=== PATIENT | male | born 1940 | race Caucasian/White ===

== ENCOUNTER 2017-03-06 08:00 | Outpatient (CLI) | payer MEDICARE ==
[2017-03-06 13:05] LABS: BASOPHILS % (AUTO) 0.6 %; EOSINOPHILS # (AUTO) 0.3 10^3/uL (0.0-0.7); EOSINOPHILS % (AUTO) 6.1 %; HCT - HEMATOCRIT 39.9 % (42.0-52.0); HGB - HEMOGLOBIN 13.6 g/dL (14.0-18.0); LYMPHOCYTES # (AUTO) 1.9 10^3/uL (1.5-3.5); LYMPHOCYTES % (AUTO) 35.6 %; MEAN CORPUSCULAR HEMOGLOBIN 31.6 pg (27.0-31.0); MEAN CORPUSCULAR VOLUME 92.8 fL (80.0-94.0); MONOCYTES # (AUTO) 0.6 10^3/uL (0.0-1.0); MONOCYTES % (AUTO) 11.3 %; NEUTROPHILS # (AUTO) 2.5 10^3/uL (1.5-6.6); NEUTROPHILS % (AUTO) 46.4 %; NUCLEATED RED BLOOD CELLS AUTO 0.1 /100WBC; RED CELL DISTRIBUTION WIDTH 13.6 % (12.0-15.0); UNCORRECTED WHITE BLOOD COUNT 5.4 x10^3/uL; WHITE BLOOD COUNT 5.4 x10^3/uL (4.8-10.8)
[2017-03-06 13:30] LABS: ALBUMIN/GLOBULIN RATIO 1.4 (1.0-2.2); BILIRUBIN,TOTAL 0.8 mg/dL (0.2-1.0); BUN - BLOOD UREA NITROGEN 13 mg/dL (6-20); CARBON DIOXIDE - CO2 29 mmol/L (21-32); CHLORIDE 104 mmol/L (101-111); CHOL/HDL RATIO 4.3 (<5.0); CHOLESTEROL 143 mg/dL; CREATININE 0.8 mg/dL (0.6-1.2); GFR - MDRD 94 (>89); GLUCOSE 106 mg/dL (70-100); HDL CHOLESTEROL 33 mg/dL; LDL/HDL RATIO 2.4 (<3.6); POTASSIUM 4.1 mmol/L (3.5-5.0); SODIUM 140 mmol/L (135-145); TOTAL PROTEIN 7.1 g/dL (6.7-8.2); TRIGLYCERIDES 160 mg/dL; VLDL CHOLESTEROL 32 mg/dL
== END 2017-03-06 08:01 | disposition home or self-care (01) ==
LOC: LAB.WCP 08:00
PROVIDERS: ATTEND Family Medicine
DX: E78.5 Hyperlipidemia, unspecified (principal); Z12.5 Encounter for screening for malignant neoplasm of prostate
CPT/HCPCS: 36415; 80053; 80061; 85025; G0103; 84153

== ENCOUNTER 2017-10-16 08:00 | Outpatient (CLI) | payer MEDICARE | END 2017-10-16 08:01 | disposition home or self-care (01) | LOC: LAB.WCP 08:00 | PROVIDERS: ATTEND Family Medicine | DX: R19.7 Diarrhea, unspecified (principal) | CPT/HCPCS: 81599; 87329 ==

== ENCOUNTER 2018-03-14 10:30 | Outpatient (CLI) | payer MEDICARE | END 2018-03-14 10:31 | disposition home or self-care (01) | LOC: LAB.WCP 10:30 | PROVIDERS: ATTEND Family Medicine | DX: R19.7 Diarrhea, unspecified (principal) | CPT/HCPCS: 36415; 81599; 83630; 87045; 87046; 87329; 87493 ==

== ENCOUNTER 2018-03-19 17:30 | Outpatient (CLI) | payer MEDICARE | END 2018-03-19 17:31 | LOC: LAB.WCP 17:30 | PROVIDERS: ATTEND Family Medicine | DX: R19.7 Diarrhea, unspecified (principal) | CPT/HCPCS: 87045; 87046 ==

== ENCOUNTER 2018-04-10 18:16 | Emergency (ER) | payer MEDICARE ==
[2018-04-10 18:48] LABS: BASOPHILS % (AUTO) 0.7 %; EOSINOPHILS # (AUTO) 0.1 10^3/uL (0.0-0.7); EOSINOPHILS % (AUTO) 1.2 %; HGB - HEMOGLOBIN 14.4 g/dL (14.0-18.0); LYMPHOCYTES # (AUTO) 1.6 10^3/uL (1.5-3.5); LYMPHOCYTES % (AUTO) 26.1 %; MEAN CORPUSCULAR HEMOGLOBIN 32.2 pg (27.0-31.0); MEAN CORPUSCULAR HGB CONC 35.1 g/dL (32.0-36.0); MEAN CORPUSCULAR VOLUME 91.8 fL (80.0-94.0); MEAN PLATELET VOLUME 6.4 fL (7.4-11.4); MONOCYTES # (AUTO) 0.6 10^3/uL (0.0-1.0); MONOCYTES % (AUTO) 9.5 %; NEUTROPHILS # (AUTO) 3.7 10^3/uL (1.5-6.6); NEUTROPHILS % (AUTO) 62.5 %; PLT - PLATELET COUNT 166 10^3/uL (130-450); RED BLOOD COUNT 4.48 10^6/uL (4.70-6.10); RED CELL DISTRIBUTION WIDTH 13.5 % (12.0-15.0)
--- NOTE | 2018-04-10 19:01 | ED Physician Documentation ---
PD HPI MHE - Stated complaint Stated Complaint: MHE - Chief complaint Chief Complaint: MHE - History obtained from History obtained from: Patient, Family - History of Present Illness Primary symptom: Psychosis (auditory hallucinations) Pain level max: 0 Pain level now: 0 - Additional information Additional information: Patient is a 77-year-old male who presents to the emergency department with increasing hallucinations, auditory, over the past several weeks. He states that they have started telling him to harm people and now they are telling him to harm his . He is afraid that he may act on these hallucinations. States has a history of paranoia dating back to when he was [age] years old. Has happened intermittently throughout his life but never had the command hallucinations like he has now. He does not feel suicidal or homicidal. No new medications or changes to his medications. Does not have a psychiatrist. Sees Dr. Vick for his PCP Review of Systems Ten Systems: 10 systems reviewed and negative Constitutional: denies: Fever, Chills Throat: denies: Sore throat Cardiac: denies: Chest pain / pressure Respiratory: denies: Cough GI: denies: Abdominal Pain, Nausea, Vomiting, Diarrhea Skin: denies: Rash Musculoskeletal: denies: Neck pain, Back pain Neurologic: denies: Headache PD PAST MEDICAL HISTORY - Past Medical History Past Medical History: Yes Endocrine/Autoimmune: Other GI: GERD, Hiatal hernia Other Past Medical History: hypoglycemia - Past Surgical History Past Surgical History: Yes General: Hiatal hernia repair, Other - Present Medications Home Medications: Ambulatory Orders Medication Instructions Recorded Confirmed Aspirin [Aspir 81] 81 mg PO DAILY 06/11/15 01/06/16 Multivitamin [Multi-Vitamin Daily] 1 each PO DAILY 06/11/15 01/06/16 Omeprazole [Prilosec] 20 mg PO DAILY 06/11/15 01/06/16 Cyclobenzaprine [Flexeril] 10 mg PO TID PRN #20 tablet 01/06/16 HYDROcod/ACETAM 5/325 [[place] 5/325] 1 - 2 ea PO Q6H PRN #15 tablet 01/06/16 - Allergies Allergies/Adverse Reactions: Allergies Allergy/AdvReac Type Severity Reaction Status Date / Time Penicillins Allergy Unknown Verified 04/10/18 18:32 - Social History Does the pt smoke?: No Smoking Status: Never smoker Does the pt drink ETOH?: No Does the pt have substance abuse?: No - Immunizations Immunizations are current?: Yes PD ED PE NORMAL - Vitals Vital signs reviewed: Yes - General General: Alert and oriented X 3, No acute distress, Well developed/nourished - HEENT HEENT: PERRL, Ears normal, Moist mucous membranes - Neck Neck: Supple, no meningeal sign - Cardiac Cardiac: RRR, Strong equal pulses - Respiratory Respiratory: No respiratory distress, Clear bilaterally - Abdomen Abdomen: Soft, Non tender, Non distended - Derm Derm: Warm and dry - Extremities Extremities: No edema, No calf tenderness / cord - Neuro Neuro: Alert and oriented X 3, 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, No motor deficit, No sensory deficit Eye Opening: Spontaneous Motor: Obeys Commands Verbal: Oriented GCS Score: 15 - Psych Psych: Normal mood, Normal affect Results - Vitals Vitals: Vital Signs - 24 hr 04/10/18 18:21 Temperature 37.1 C Heart Rate 85 Respiratory 16 Rate Blood Pressure 174/92 H O2 Saturation 95 Oxygen O2 Source Room air - Labs Labs: Laboratory Tests 04/10/18 04/10/18 04/10/18 18:40 18:40 18:40 WBC 6.0 RBC 4.48 L Hgb 14.4 Hct 41.1 L MCV 91.8 MCH 32.2 H MCHC 35.1 RDW 13.5 Plt Count 166 MPV 6.4 L Neut # (Auto) 3.7 Lymph # (Auto) 1.6 [place] # (Auto) 0.6 Eos # (Auto) 0.1 Baso # (Auto) 0.0 Absolute Nucleated RBC 0.00 Nucleated RBC % 0.0 Sodium 139 Potassium 4.0 Chloride 105 Carbon Dioxide 25 Anion Gap 9.0 BUN 15 Creatinine 1.0 Estimated GFR (MDRD) 72 L Glucose 118 H Calcium 9.4 Total Bilirubin 0.8 AST 23 ALT 27 Alkaline Phosphatase 65 Total Protein 8.0 Albumin 4.6 Globulin 3.4 Albumin/Globulin Ratio 1.4 Lipase 21 L TSH 1.75 Free T4 0.74 Urine Color Urine Clarity Urine pH Ur Specific [place] Urine Protein Urine Glucose (UA) Urine Ketones Urine Occult Blood Urine Nitrite Urine Bilirubin Urine Urobilinogen Ur Leukocyte Esterase Ur Microscopic Review Urine Culture Comments Salicylates < 6.0 Urine Opiates Screen Ur Oxycodone Screen Urine Methadone Screen Ur Propoxyphene Screen Acetaminophen < 10 L Ur Barbiturates Screen Ur Tricyclics Screen Ur Phencyclidine Scrn Ur Amphetamine Screen U Methamphetamines Scrn U Benzodiazepines Scrn Urine Cocaine Screen U Cannabinoids Screen Ethyl Alcohol < 5.0 04/10/18 19:25 WBC RBC Hgb Hct MCV MCH MCHC RDW Plt Count MPV Neut # (Auto) Lymph # (Auto) [place] # (Auto) Eos # (Auto) Baso # (Auto) Absolute Nucleated RBC Nucleated RBC % Sodium Potassium Chloride Carbon Dioxide Anion Gap BUN Creatinine Estimated GFR (MDRD) Glucose Calcium Total Bilirubin AST ALT Alkaline Phosphatase Total Protein Albumin Globulin Albumin/Globulin Ratio Lipase TSH Free T4 Urine Color YELLOW Urine Clarity CLEAR Urine pH 6.5 Ur Specific [place] 1.015 Urine Protein NEGATIVE Urine Glucose (UA) NEGATIVE Urine Ketones NEGATIVE Urine Occult Blood NEGATIVE Urine Nitrite NEGATIVE Urine Bilirubin NEGATIVE Urine Urobilinogen 0.2 (NORMAL) Ur Leukocyte Esterase NEGATIVE Ur Microscopic Review NOT INDICATED Urine Culture Comments NOT INDICATED Salicylates Urine Opiates Screen NEGATIVE Ur Oxycodone Screen NEGATIVE Urine Methadone Screen NEGATIVE Ur Propoxyphene Screen NEGATIVE Acetaminophen Ur Barbiturates Screen NEGATIVE Ur Tricyclics Screen NEGATIVE Ur Phencyclidine Scrn NEGATIVE Ur Amphetamine Screen NEGATIVE U Methamphetamines Scrn NEGATIVE U Benzodiazepines Scrn NEGATIVE Urine Cocaine Screen NEGATIVE U Cannabinoids Screen NEGATIVE Ethyl Alcohol - Rads (name of study) head CT Radiology: Prelim report reviewed, EMP read contemporaneously, See rad report ( no acute intracranial abnormality.) PD MEDICAL DECISION MAKING - ED course Complexity details: reviewed results, re-evaluated patient, considered differential, d/w patient, d/w family, d/w trousseau consultant ED course: Patient is a 77-year-old male who presents to the emergency department with auditory hallucinations and emotional lability. Unclear if this is a psychiatric disease versus possible early dementia. I consulted tele- psychiatry who evaluated the patient and recommend starting him on Seroquel 50 mg by mouth nightly. They also recommended voluntary hospitalization. Recommend a neurology consult/workup for possible dementia. This will likely have to be performed as an outpatient. Patient will be held overnight in the emergency department for social work in the morning to pursue voluntary hospitalization. Signed out to the [facility] emergency department physician This document was made in part using voice recognition software. While efforts are made to proofread this document, sound alike and grammatical errors may occur. - Sepsis Event Vital Signs: Vital Signs - 24 hr 04/10/18 18:21 Temperature 37.1 C Heart Rate 85 Respiratory 16 Rate Blood Pressure 174/92 H O2 Saturation 95 Oxygen O2 Source Room air Departure - Departure Clinical Impression: Emotional lability, Auditory hallucination Condition: Stable
[2018-04-10 19:09] LABS: ALBUMIN 4.6 g/dL (3.2-5.5); ALBUMIN/GLOBULIN RATIO 1.4 (1.0-2.2); ALKALINE PHOSPHATASE 65 IU/L (42-121); ALT ALANINE AMINOTRANSFERASE 27 IU/L (10-60); AST ASPARTATE AMINOTRANSFERASE 23 IU/L (10-42); BILIRUBIN,TOTAL 0.8 mg/dL (0.2-1.0); BUN - BLOOD UREA NITROGEN 15 mg/dL (6-20); CALCIUM 9.4 mg/dL (8.5-10.3); CARBON DIOXIDE - CO2 25 mmol/L (21-32); CHLORIDE 105 mmol/L (101-111); GFR - MDRD 72 (>89); GLUCOSE 118 mg/dL (70-100); LIPASE 21 U/L (22-51); SALICYLATE < 6.0 mg/dL; SODIUM 139 mmol/L (135-145)
[2018-04-10 19:27] LABS: MUDS CUTOFF CONCENTRATIONS CUTOFF CONC BELOW:
[2018-04-10 19:30] LABS: ACETAMINOPHEN < 10 ug/mL (10-30)
[2018-04-10 19:39] LABS: BILIRUBIN,URINE NEGATIVE (NEGATIVE); GLUCOSE, URINE (UA) NEGATIVE (NEGATIVE); KETONES,URINE (UA) NEGATIVE (NEGATIVE); LEUKOCYTE ESTERASE, URINE NEGATIVE (NEGATIVE); NITRITE,URINE NEGATIVE (NEGATIVE); OCCULT BLOOD,URINE NEGATIVE (NEGATIVE); PH,URINE 6.5 PH (5.0-7.5); PROTEIN,URINE NEGATIVE (NEGATIVE); UROBILINOGEN,URINE 0.2 (NORMAL) E.U./dL (NORMAL)
[2018-04-10 19:40] LABS: CLARITY,URINE CLEAR (CLEAR)
--- NOTE | 2018-04-10 19:44 | CT Report ---
Reason: ALOC, hallucinations Procedure Date: 04/10/2018 Accession Number: [id number] / [id number] Procedure: CT - Head W/O CPT Code: FULL RESULT: EXAM: CT HEAD EXAM DATE: 04/10/2018 07:21 PM. CLINICAL HISTORY: Auditory hallucination. COMPARISON: None. TECHNIQUE: Multiaxial CT images were obtained from the foramen magnum to the vertex. Reformats: Sagittal and coronal. IV contrast: None. In accordance with CT protocol optimization, one or more of the following dose reduction techniques were utilized for this exam: automated exposure control, adjustment of mA and/or KV based on patient size, or use of iterative reconstructive technique. FINDINGS: Parenchyma: No intraparenchymal hemorrhage. No evidence of mass, midline shift, or CT findings of acute infarction. Capps-white differentiation is distinct. Diffuse chronic microangiopathic white matter changes are evident. Extraaxial Spaces: Normal for age. No subdural or epidural collections identified. Ventricles: The ventricles and cortical sulci are enlarged, consistent with age-related tissue loss. Sinuses and orbits: Imaged paranasal sinuses, orbits, and mastoids show no significant abnormality. Bones: No evidence of fracture or calvarial defect. Other: None. IMPRESSION: Generalized age-related cortical atrophic changes without evidence of acute intracranial abnormality. RADIA
[2018-04-10 19:53] LABS: THYROID STIMULATING HORMONE 1.75 uIU/mL (0.34-5.60)
[2018-04-10 19:57] LABS: FREE T4 (FREE THYROXINE) 0.74 ng/dL (0.58-1.64)
[2018-04-10 19:59] LABS: AMPHETAMINE SCREEN,URINE NEGATIVE (NEGATIVE); BENZODIAZEPINES SCREEN, URINE NEGATIVE (NEGATIVE); COCAINE SCREEN URINE NEGATIVE (NEGATIVE); METHADONE SCREEN, URINE NEGATIVE (NEGATIVE); METHAMPHETAMINES SCREEN, URINE NEGATIVE (NEGATIVE); OPIATE SCREEN, URINE NEGATIVE (NEGATIVE); OXYCODONE SCREEN, URINE NEGATIVE (NEGATIVE); PROPOXYPHENE SCREEN, URINE NEGATIVE (NEGATIVE); TRICYCLIC ANTIDEPRESSANT,URINE NEGATIVE (NEGATIVE)
[2018-04-11] MEDS ORDERED: QUEtiapine 25 MG TABLET PO STA ×2 (00:13→22:21)
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
--- NOTE | 2018-04-11 07:22 | ED Physician Documentation ---
History of Present Illness - Stated complaint Stated Complaint: MHE - Chief complaint Chief Complaint: MHE PD PAST MEDICAL HISTORY - Past Medical History Past Medical History: Yes Endocrine/Autoimmune: Other GI: GERD, Hiatal hernia Other Past Medical History: hypoglycemia - Past Surgical History Past Surgical History: Yes General: Hiatal hernia repair, Other - Present Medications Home Medications: Ambulatory Orders Medication Instructions Recorded Confirmed Aspirin [Aspir 81] 81 mg PO DAILY 06/11/15 01/06/16 Multivitamin [Multi-Vitamin Daily] 1 each PO DAILY 06/11/15 01/06/16 Omeprazole [Prilosec] 20 mg PO DAILY 06/11/15 01/06/16 Cyclobenzaprine [Flexeril] 10 mg PO TID PRN #20 tablet 01/06/16 HYDROcod/ACETAM 5/325 [[place] 5/325] 1 - 2 ea PO Q6H PRN #15 tablet 01/06/16 - Allergies Allergies/Adverse Reactions: Allergies Allergy/AdvReac Type Severity Reaction Status Date / Time Penicillins Allergy Unknown Verified 04/10/18 18:32 - Social History Does the pt smoke?: No Smoking Status: Never smoker Does the pt drink ETOH?: No Does the pt have substance abuse?: No - Immunizations Immunizations are current?: Yes Results - Vitals Vitals: Vital Signs - 24 hr 04/11/18 08:44 Temperature 36.5 C Heart Rate 66 Respiratory 14 Rate Blood Pressure 144/92 H O2 Saturation 93 Oxygen O2 Source Room air - EKG (time done) 1138 Rate: Rate (enter#) (72) Rhythm: NSR [place]: Normal Intervals: Normal AK QRS: Normal Ischemia: Normal ST segments - Labs Labs: Laboratory Tests 04/10/18 04/10/18 04/10/18 18:40 18:40 18:40 WBC 6.0 RBC 4.48 L Hgb 14.4 Hct 41.1 L MCV 91.8 MCH 32.2 H MCHC 35.1 RDW 13.5 Plt Count 166 MPV 6.4 L Neut # (Auto) 3.7 Lymph # (Auto) 1.6 [place] # (Auto) 0.6 Eos # (Auto) 0.1 Baso # (Auto) 0.0 Absolute Nucleated RBC 0.00 Nucleated RBC % 0.0 Sodium 139 Potassium 4.0 Chloride 105 Carbon Dioxide 25 Anion Gap 9.0 BUN 15 Creatinine 1.0 Estimated GFR (MDRD) 72 L Glucose 118 H Calcium 9.4 Total Bilirubin 0.8 AST 23 ALT 27 Alkaline Phosphatase 65 Total Protein 8.0 Albumin 4.6 Globulin 3.4 Albumin/Globulin Ratio 1.4 Lipase 21 L TSH 1.75 Free T4 0.74 Urine Color Urine Clarity Urine pH Ur Specific [place] Urine Protein Urine Glucose (UA) Urine Ketones Urine Occult Blood Urine Nitrite Urine Bilirubin Urine Urobilinogen Ur Leukocyte Esterase Ur Microscopic Review Urine Culture Comments Salicylates < 6.0 Urine Opiates Screen Ur Oxycodone Screen Urine Methadone Screen Ur Propoxyphene Screen Acetaminophen < 10 L Ur Barbiturates Screen Ur Tricyclics Screen Ur Phencyclidine Scrn Ur Amphetamine Screen U Methamphetamines Scrn U Benzodiazepines Scrn Urine Cocaine Screen U Cannabinoids Screen Ethyl Alcohol < 5.0 04/10/18 19:25 WBC RBC Hgb Hct MCV MCH MCHC RDW Plt Count MPV Neut # (Auto) Lymph # (Auto) [place] # (Auto) Eos # (Auto) Baso # (Auto) Absolute Nucleated RBC Nucleated RBC % Sodium Potassium Chloride Carbon Dioxide Anion Gap BUN Creatinine Estimated GFR (MDRD) Glucose Calcium Total Bilirubin AST ALT Alkaline Phosphatase Total Protein Albumin Globulin Albumin/Globulin Ratio Lipase TSH Free T4 Urine Color YELLOW Urine Clarity CLEAR Urine pH 6.5 Ur Specific [place] 1.015 Urine Protein NEGATIVE Urine Glucose (UA) NEGATIVE Urine Ketones NEGATIVE Urine Occult Blood NEGATIVE Urine Nitrite NEGATIVE Urine Bilirubin NEGATIVE Urine Urobilinogen 0.2 (NORMAL) Ur Leukocyte Esterase NEGATIVE Ur Microscopic Review NOT INDICATED Urine Culture Comments NOT INDICATED Salicylates Urine Opiates Screen NEGATIVE Ur Oxycodone Screen NEGATIVE Urine Methadone Screen NEGATIVE Ur Propoxyphene Screen NEGATIVE Acetaminophen Ur Barbiturates Screen NEGATIVE Ur Tricyclics Screen NEGATIVE Ur Phencyclidine Scrn NEGATIVE Ur Amphetamine Screen NEGATIVE U Methamphetamines Scrn NEGATIVE U Benzodiazepines Scrn NEGATIVE Urine Cocaine Screen NEGATIVE U Cannabinoids Screen NEGATIVE Ethyl Alcohol PD MEDICAL DECISION MAKING - ED course ED course: assumed care 7 AM 04/11/18 77 male to ED with new onset command auditory hallucinations instructing him to harm others seen by Dr Pantoja yesterday and medically cleared including [facility] then had telepsych eval which recommended start seroquel, neuro eval for dementia (not available service at [facility]) and placement in [facility] recommended meds were started went to see pt [id number] he is sleeping RRR CTAB at bedside and updated on plan SW consult to assist geripsych placement pt accepted by Mathew Iraheta completed - Sepsis Event Vital Signs: Vital Signs - 24 hr 04/11/18 08:44 Temperature 36.5 C Heart Rate 66 Respiratory 14 Rate Blood Pressure 144/92 H O2 Saturation 93 Oxygen O2 Source Room air Departure - Departure Disposition: 65 Psych Hosp/Unit DC/Xfer Clinical Impression: Emotional lability, Auditory hallucination Condition: Stable
--- NOTE | 2018-04-12 08:03 | ED Physician Documentation ---
ED Addendum - Addendum Addendum: 04/12/18 08:03 resumed care 7 Am 04/12/18 pt has been placed and transport will arrive 915 I went to see him sleeping comfortably at this time updated
[2018-04-12 09:32] VITALS: BP 137/89
== END 2018-04-12 09:30 ==
LOC: ED 18:16
DX: R45.86 Emotional lability (principal); R44.0 Auditory hallucinations; I10 Essential (primary) hypertension; Z81.8 Family history of other mental and behavioral disorders
CPT/HCPCS: 36415; 70450; 80053; 81003; 83690; 84439; 84443; 85025; 93005; 99283; 99284; A9270; G0426; Q3014; 80306; 80307; 80320; 80329; 81001; 87086

== ENCOUNTER 2018-06-25 21:36 | Emergency (ER) | payer MEDICARE ==
--- NOTE | 2018-06-25 22:01 | ED Physician Documentation ---
PD HPI MHE - Stated complaint Stated Complaint: MHE - Chief complaint Chief Complaint: MHE - History obtained from History obtained from: Patient, Family - History of Present Illness Primary symptom: Suicidal ideation, Homicidal ideation Timing - onset: How many days ago (3) Pain level max: 0 Pain level now: 0 Recently seen: Emergency Dept - Additional information Additional information: was evaluated in this ED in March for similar symptoms; at that time, patient was transferred ([facility], inpatient stay for 9 days), and symptoms had resolved until 3 days ago. No recent missed medications or new recent medications. For past 3 days, he has had increasingly frequent thoughts of self harm and harming his . He feels the thoughts of harming his are stronger than they had been in the past. Tonight, he felt like he was losing control over these tho ughts and was worried he might act on them. Review of Systems Constitutional: reports: Reviewed and negative Cardiac: reports: Reviewed and negative Respiratory: reports: Reviewed and negative GI: reports: Reviewed and negative : denies: Dysuria, Frequency Neurologic: denies: Generalized weakness, Focal weakness, Numbness, Confused, Headache Psychiatric: reports: Suicidal, Homicidal, Anxiety. denies: Depressed, Hallucinations, Delusions PD PAST MEDICAL HISTORY - Past Medical History Past Medical History: No Cardiovascular: Hypertension Respiratory: None Neuro: None Endocrine/Autoimmune: Other GI: GERD, Hiatal hernia : None HEENT: None Psych: Depression, Anxiety Musculoskeletal: None Derm: None - Past Surgical History Past Surgical History: Yes General: Hiatal hernia repair, Other - Present Medications Home Medications: Ambulatory Orders Medication Instructions Recorded Confirmed Aspirin [Aspir 81] 81 mg PO DAILY 06/11/15 01/06/16 Multivitamin [Multi-Vitamin Daily] 1 each PO DAILY 06/11/15 01/06/16 Omeprazole [Prilosec] 20 mg PO DAILY 06/11/15 01/06/16 Labetalol [Trandate] 100 mg PO BID 06/25/18 06/25/18 Lamotrigine [Lamotrigine Odt] 25 mg PO BID 06/25/18 06/25/18 QUEtiapine [SEROquel] 50 mg PO DAILY PM 06/25/18 06/25/18 hydrOXYzine pamoate [Hydroxyzine 25 mg PO Q8H PRN 06/25/18 06/25/18 Pamoate] LORazepam [Lorazepam] 0.5 mg PO TID PRN #14 tablet 06/26/18 Quetiapine Fumarate [Seroquel] 50 mg PO BID #60 tablet 06/26/18 - Allergies Allergies/Adverse Reactions: Allergies Allergy/AdvReac Type Severity Reaction Status Date / Time Penicillins Allergy Unknown Verified 06/25/18 21:43 - Social History Does the pt smoke?: No Smoking Status: Never smoker Does the pt drink ETOH?: No Does the pt have substance abuse?: No - Immunizations Immunizations are current?: Yes - POLST Patient has POLST: No PD ED PE NORMAL - Vitals Vital signs reviewed: Yes - General General: Alert and oriented X 3, No acute distress, Well developed/nourished - HEENT HEENT: PERRL, EOMI, Moist mucous membranes - Neck Neck: Supple, no meningeal sign - Cardiac Cardiac: RRR, No murmur - Respiratory Respiratory: No respiratory distress, Clear bilaterally - Abdomen Abdomen: Soft, Non tender - Derm Derm: Normal color, Warm and dry - Neuro Neuro: Alert and oriented X 3, No motor deficit, No sensory deficit, Normal speech Eye Opening: Spontaneous Motor: Obeys Commands Verbal: Oriented GCS Score: 15 - Psych Psych: Normal mood, Normal affect Results - Vitals Vitals: Vital Signs - 24 hr 06/25/18 06/26/18 21:38 05:12 Temperature 36.3 C L 36.3 C L Heart Rate 77 69 Respiratory 16 Rate Blood Pressure 161/83 H 166/98 H O2 Saturation 97 98 Oxygen O2 Source Room air - Labs Labs: Laboratory Tests 06/25/18 06/25/18 06/25/18 22:10 22:10 22:10 WBC 5.6 RBC 4.13 L Hgb 13.3 L Hct 37.9 L MCV 91.7 MCH 32.3 H MCHC 35.2 RDW 13.3 Plt Count 142 MPV 6.6 L Neut # (Auto) 3.5 Lymph # (Auto) 1.3 L [place] # (Auto) 0.6 Eos # (Auto) 0.2 Baso # (Auto) 0.0 Absolute Nucleated RBC 0.00 Nucleated RBC % 0.0 Sodium 139 Potassium 3.7 Chloride 108 Carbon Dioxide 25 Anion Gap 6.0 BUN 17 Creatinine 1.0 Estimated GFR (MDRD) 72 L Glucose 135 H Calcium 8.9 Total Bilirubin 0.8 AST 22 ALT 22 Alkaline Phosphatase 75 Total Protein 7.2 Albumin 4.6 Globulin 2.6 Albumin/Globulin Ratio 1.8 Lipase 16 L Vitamin B12 TSH 1.37 Urine Color Urine Clarity Urine pH Ur Specific [place] Urine Protein Urine Glucose (UA) Urine Ketones Urine Occult Blood Urine Nitrite Urine Bilirubin Urine Urobilinogen Ur Leukocyte Esterase Ur Microscopic Review Urine Culture Comments Salicylates < 6.0 Urine Opiates Screen Ur Oxycodone Screen Urine Methadone Screen Ur Propoxyphene Screen Acetaminophen < 10 L Ur Barbiturates Screen Ur Tricyclics Screen Ur Phencyclidine Scrn Ur Amphetamine Screen U Methamphetamines Scrn U Benzodiazepines Scrn Urine Cocaine Screen U Cannabinoids Screen Ethyl Alcohol < 5.0 06/25/18 06/25/18 22:10 22:13 WBC RBC Hgb Hct MCV MCH MCHC RDW Plt Count MPV Neut # (Auto) Lymph # (Auto) [place] # (Auto) Eos # (Auto) Baso # (Auto) Absolute Nucleated RBC Nucleated RBC % Sodium Potassium Chloride Carbon Dioxide Anion Gap BUN Creatinine Estimated GFR (MDRD) Glucose Calcium Total Bilirubin AST ALT Alkaline Phosphatase Total Protein Albumin Globulin Albumin/Globulin Ratio Lipase Vitamin B12 426 TSH Urine Color YELLOW Urine Clarity CLEAR Urine pH 5.5 Ur Specific [place] >=1.030 H Urine Protein NEGATIVE Urine Glucose (UA) NEGATIVE Urine Ketones NEGATIVE Urine Occult Blood NEGATIVE Urine Nitrite NEGATIVE Urine Bilirubin NEGATIVE Urine Urobilinogen 0.2 (NORMAL) Ur Leukocyte Esterase NEGATIVE Ur Microscopic Review NOT INDICATED Urine Culture Comments NOT INDICATED Salicylates Urine Opiates Screen NEGATIVE Ur Oxycodone Screen NEGATIVE Urine Methadone Screen NEGATIVE Ur Propoxyphene Screen NEGATIVE Acetaminophen Ur Barbiturates Screen NEGATIVE Ur Tricyclics Screen POSITIVE H Ur Phencyclidine Scrn NEGATIVE Ur Amphetamine Screen NEGATIVE U Methamphetamines Scrn NEGATIVE U Benzodiazepines Scrn NEGATIVE Urine Cocaine Screen NEGATIVE U Cannabinoids Screen NEGATIVE Ethyl Alcohol PD MEDICAL DECISION MAKING - ED course Complexity details: reviewed old records, reviewed results, re-evaluated patient, considered differential, d/w patient, d/w family ED course: Telepsych consult obtained, and the recommendation is inpatient stabilization. Also increase seroquel to 50mg BID (from 50mg QD). Also lorazepam 0.5mg PO now. Continue other meds. ED RN was able to arrange for a bed at [facility]. In working on finalizing this arrangement, staff at [facility] requested an EKG. When I explained this to patient, he tells me he no longer wants to be admitted anywhere. His is present at bedside as he tells me that he and his have come up with a plan that they both feel comfortable with: she will take him home, he will pack and then drive down to a hotel in [place] at or near the airport while she will stay at the home on [address]. He plans on then making arrangements to fly to [place] where he says he has friends and family, including a few children, that have always been very supportive and readily available for him. He says he has seen a therapist there, as well, and plans to make an appointment to see him. He says if this therapist is no longer in practice, he will ask for a recommendation. He says he is confident he will not have any acute issues, but says he knows he can always go to nearest ED or call 911 if he feels he needs to be reevaluated on an immediate basis. He says he hopes that eventually medication changes will lead to him being comfortable with returning to his , but says he realizes it will likely be weeks or longer before this can be considered. Patient says that the point of this plan is to keep his at a safe distance so that he cannot harm her. I asked him about the SI, and he says that the only reason he had those thoughts was he figured if he killed himself, then he would no longer be a threat to his . He maintains that he has not had any urge to act on either the HI or SI thoughts, but was worried about the possibility that he might develop the urge to do so (for now, he has only had thoughts of such acts happening, but not an urge or desire to act on them; he presented tonight because he was repulsed by the thought of harm coming to his . If he puts distance between himself and his , he says he would not have any thoughts of self-harm). The is present during this conversation and says she is comfortable with this plan, albeit sad that he will be away from her. They both tell me that they are in love with each other. Patient presented to ED voluntarily, and gives a plan that is a reasonably acceptable alternative to inpatient stay/hospitalization. I do not have enough information at this time to hold patient in ED or transfer him against his will. Departure - Departure Disposition: 01 Home, Self Care Clinical Impression: Emotional lability Condition: Good Instructions: ED Depression Follow-Up: Carlos Vick MD [Primary Care Provider] - Prescriptions: LORazepam [Lorazepam] 0.5 mg PO TID PRN #14 tablet PRN Reason: Anxiety Quetiapine Fumarate [Seroquel] 50 mg PO BID #60 tablet Comments: As we discussed, arrangements were in the process of being made to transfer you to [facility] but you have declined this. Please return to the emergency department (nearest facility) at any time you want to be reevaluated. The psychiatrist recommended increasing your Seroquel to 50mg by mouth twice per day, and thus a new prescription has been provided for you. You are NOT to take this seroquel in addition to the previous Seroquel; take the 50mg twice per day INSTEAD of the 50mg once per day. Discharge Date/Time: 06/26/18 05:35
[2018-06-25 22:16] LABS: BASOPHILS % (AUTO) 0.8 %; EOSINOPHILS # (AUTO) 0.2 10^3/uL (0.0-0.7); EOSINOPHILS % (AUTO) 3.2 %; HGB - HEMOGLOBIN 13.3 g/dL (14.0-18.0); LYMPHOCYTES # (AUTO) 1.3 10^3/uL (1.5-3.5); MEAN CORPUSCULAR HEMOGLOBIN 32.3 pg (27.0-31.0); MEAN CORPUSCULAR HGB CONC 35.2 g/dL (32.0-36.0); MEAN CORPUSCULAR VOLUME 91.7 fL (80.0-94.0); MEAN PLATELET VOLUME 6.6 fL (7.4-11.4); MONOCYTES # (AUTO) 0.6 10^3/uL (0.0-1.0); NEUTROPHILS # (AUTO) 3.5 10^3/uL (1.5-6.6); PLT - PLATELET COUNT 142 10^3/uL (130-450); RED BLOOD COUNT 4.13 10^6/uL (4.70-6.10); RED CELL DISTRIBUTION WIDTH 13.3 % (12.0-15.0); WHITE BLOOD COUNT 5.6 x10^3/uL (4.8-10.8)
[2018-06-25 22:20] LABS: MUDS CUTOFF CONCENTRATIONS CUTOFF CONC BELOW:
[2018-06-25 22:23] LABS: BILIRUBIN,URINE NEGATIVE (NEGATIVE); GLUCOSE, URINE (UA) NEGATIVE (NEGATIVE); KETONES,URINE (UA) NEGATIVE (NEGATIVE); LEUKOCYTE ESTERASE, URINE NEGATIVE (NEGATIVE); NITRITE,URINE NEGATIVE (NEGATIVE); OCCULT BLOOD,URINE NEGATIVE (NEGATIVE); PH,URINE 5.5 PH (5.0-7.5); PROTEIN,URINE NEGATIVE (NEGATIVE); UROBILINOGEN,URINE 0.2 (NORMAL) E.U./dL (NORMAL)
[2018-06-25 22:24] LABS: CLARITY,URINE CLEAR (CLEAR)
[2018-06-25 22:32] LABS: ACETAMINOPHEN < 10 ug/mL (10-30); ALBUMIN 4.6 g/dL (3.2-5.5); ALBUMIN/GLOBULIN RATIO 1.8 (1.0-2.2); ALKALINE PHOSPHATASE 75 IU/L (42-121); ALT ALANINE AMINOTRANSFERASE 22 IU/L (10-60); AST ASPARTATE AMINOTRANSFERASE 22 IU/L (10-42); BILIRUBIN,TOTAL 0.8 mg/dL (0.2-1.0); BUN - BLOOD UREA NITROGEN 17 mg/dL (6-20); CALCIUM 8.9 mg/dL (8.5-10.3); CARBON DIOXIDE - CO2 25 mmol/L (21-32); CHLORIDE 108 mmol/L (101-111); GFR - MDRD 72 (>89); GLUCOSE 135 mg/dL (70-100); LIPASE 16 U/L (22-51); SALICYLATE < 6.0 mg/dL; SODIUM 139 mmol/L (135-145); TOTAL PROTEIN 7.2 g/dL (6.7-8.2)
[2018-06-25 22:33] LABS: AMPHETAMINE SCREEN,URINE NEGATIVE (NEGATIVE); BENZODIAZEPINES SCREEN, URINE NEGATIVE (NEGATIVE); COCAINE SCREEN URINE NEGATIVE (NEGATIVE); METHADONE SCREEN, URINE NEGATIVE (NEGATIVE); METHAMPHETAMINES SCREEN, URINE NEGATIVE (NEGATIVE); OPIATE SCREEN, URINE NEGATIVE (NEGATIVE); OXYCODONE SCREEN, URINE NEGATIVE (NEGATIVE); PROPOXYPHENE SCREEN, URINE NEGATIVE (NEGATIVE); TRICYCLIC ANTIDEPRESSANT,URINE POSITIVE (NEGATIVE)
[2018-06-26] MEDS ORDERED: LORazepam 2 MG/ML VIAL IVP STA (03:14)
[2018-06-26] MEDS ORDERED: LORazepam 0.5 MG TABLET PO STA (03:16)
--- NOTE | 2018-06-26 03:41 | TELEPSYCH PHYS NOTE ---
Telepsych Note - CHIEF COMPLAINT/HX OF PRESENT ILLNESS Cheif Complaint and History of Present Illness: This evaluation was conducted via telepsychiatry with the assistance of onsite staff. Chief Complaint: SI/HI History of Present Illness: Pt seen via televideo with the help of onsite staff. Pt is 77 yo male who reports a hx of depression and anxiety. Pt presented to the hospital, BIB his at his request due to intensifying thoughts of killing himself and his . Pt reports a similar episode occurring in March 2018 . At that time he was psychiatrically admitted x 9 days. He was started on Lamictal, Seroquel and hydroxyzine PRN with good effect. States however that the intrusive thought of SI and HI returned approximately 5 days prior. States the thoughts have been intensifying. States he has been increasingly worried that he will act on the thoughts. States he has been sleeping separately from his , outside of the home, in the garage with a lock on the door. States yesterday he asked his to bring him to the hospital as he felt he could no longer control the thoughts. He states he felt that he was going to act on the thoughts. Pt is very distraught about the thoughts. States it is not him. States he does not understand what is going on. Feels that he is having a break. Pt requesting high doses of medication to sedate me and get rid of these thoughts. Pts was present during the evaluation. Expressed safety concerns and concerns about his overall mental state. States on his prior admission, the diagnosis of dementia was considered. Prior brain imaging showed only age-related changes. States she does believe he has been more forgetful and noted some mild personality changes. States he is less talkative and more isolative. Feels that he has been down. On ROS, pt denies AVHs nor delusions. Reports continued thoughts of SI and HI towards his . Cites these thoughts as intrusive, but intensifying. Denies any plan to act but fearful he will. 77 yo male presenting to the hospital accompanied by his at his request due to thoughts of killing himself and his . Has been attempting to control or manage the thoughts however admits that they are intensifying, and he is worried that he will act on the thoughts. Pt presents as a danger to himself and his requiring inpt psychiatric admission for safety, stabilization and treatment. - SI/HI/SELF HARM SI/HI/SELF HARM (CURRENT OR HISTORY OF):: SI, HI - PSYCHIATRIC HX/TREATMENT HX Psychiatric: Depression, Anxiety Psychiatric/Treatment Hx Other: Prior inpt psychiatric admission for similar presentation. - MEDICAL HX Does the pt have a hx of MRSA?: No Neurological History: None Eyes, Ears, Nose, Throat: None Cardiovascular: Hypertension Respiratory: None Skin: None Endocrine/Autoimmune: Other Gastrointestinal: GERD, Hiatal hernia Urinary: None Musculoskeletal: None Blood Disorders: None - SURGICAL HX General: Hiatal hernia repair, Other - HOME MEDICATIONS Home Meds (as last confirmed): Patient History Medication Instructions Recorded Confirmed Aspirin [Aspir 81] 81 mg PO DAILY 06/11/15 01/06/16 Multivitamin [Multi-Vitamin Daily] 1 each PO DAILY 06/11/15 01/06/16 Omeprazole [Prilosec] 20 mg PO DAILY 06/11/15 01/06/16 Labetalol [Trandate] 100 mg PO BID 06/25/18 06/25/18 Lamotrigine [Lamotrigine Odt] 25 mg PO BID 06/25/18 06/25/18 QUEtiapine [SEROquel] 50 mg PO DAILY PM 06/25/18 06/25/18 hydrOXYzine pamoate [Hydroxyzine 25 mg PO Q8H PRN 06/25/18 06/25/18 Pamoate] - ALLERGIES Allergies (as last confirmed): Allergies Allergy/AdvReac Type Severity Reaction Status Date / Time Penicillins Allergy Unknown Verified 06/25/18 21:43 - FAMILY PSYCH/SUICIDE/SOCIAL HX-MENTAL Family - Suicide - Social Hx and Mental Status Exam: none reported - TREATMENT/PHARMACOLOGICAL RECOMMENDATION Treatment - Pharmacological - Therapy Recommendations: Treatment Recommendations: Pt requires acute inpt psychiatric admission For safety, stabilization and treatment Pt is voluntary for inpt treatment. Geriatric or neuropsych unit if available Med Reccs: Increase Seroquel to 50mg po BID Continue Lamictal 25mg po BID Please give Ativan 0.5mg po x1 now - TIME SPENT & PROVIDER LOCATION Telepsych consultation conducted via videoconferencing: Yes List names and roles of persons who participated in consult: Dhiraj Dove, , Dr. Harrell Telepsych Provider Location: [place] Time Telepsych consult began: 05:50 Time Telepsych consult completed: 06:20
[2018-06-26 05:13] VITALS: BP 166/98
== END 2018-06-26 05:35 | disposition home or self-care (01) ==
LOC: ED 21:36
DX: R45.86 Emotional lability (principal); F32.9 Major depressive disorder, single episode, unspecified; F41.9 Anxiety disorder, unspecified; I10 Essential (primary) hypertension; Z79.82 Long term (current) use of aspirin
CPT/HCPCS: 36415; 80053; 81003; 82607; 83690; 84443; 85025; 86780; 99283; A9270; G0425; Q3014; 80306; 80307; 80320; 80329; 81001; 87086

== ENCOUNTER 2018-06-29 09:00 | Outpatient (CLI) | payer MEDICARE ==
[2018-06-29 13:20] LABS: BASOPHILS % (AUTO) 0.4 %; EOSINOPHILS # (AUTO) 0.2 10^3/uL (0.0-0.7); EOSINOPHILS % (AUTO) 3.6 %; HGB - HEMOGLOBIN 13.5 g/dL (14.0-18.0); LYMPHOCYTES # (AUTO) 1.1 10^3/uL (1.5-3.5); LYMPHOCYTES % (AUTO) 23.8 %; MEAN CORPUSCULAR HEMOGLOBIN 32.3 pg (27.0-31.0); MEAN CORPUSCULAR HGB CONC 34.9 g/dL (32.0-36.0); MEAN CORPUSCULAR VOLUME 92.3 fL (80.0-94.0); MEAN PLATELET VOLUME 7.1 fL (7.4-11.4); MONOCYTES # (AUTO) 0.4 10^3/uL (0.0-1.0); MONOCYTES % (AUTO) 9.4 %; NEUTROPHILS % (AUTO) 62.8 %; PLT - PLATELET COUNT 149 10^3/uL (130-450); RED BLOOD COUNT 4.19 10^6/uL (4.70-6.10); RED CELL DISTRIBUTION WIDTH 13.4 % (12.0-15.0); WHITE BLOOD COUNT 4.8 x10^3/uL (4.8-10.8)
[2018-06-29 13:24] LABS: ALBUMIN 4.3 g/dL (3.2-5.5); ALBUMIN/GLOBULIN RATIO 1.7 (1.0-2.2); ALKALINE PHOSPHATASE 63 IU/L (42-121); ALT ALANINE AMINOTRANSFERASE 20 IU/L (10-60); AST ASPARTATE AMINOTRANSFERASE 23 IU/L (10-42); BILIRUBIN,TOTAL 1.2 mg/dL (0.2-1.0); BUN - BLOOD UREA NITROGEN 13 mg/dL (6-20); CARBON DIOXIDE - CO2 28 mmol/L (21-32); CHLORIDE 105 mmol/L (101-111); GFR - MDRD 72 (>89); GLUCOSE 142 mg/dL (70-100); SODIUM 140 mmol/L (135-145); TOTAL PROTEIN 6.8 g/dL (6.7-8.2)
[2018-06-29 13:43] LABS: THYROID STIMULATING HORMONE 1.16 uIU/mL (0.34-5.60)
== END 2018-06-29 09:01 | disposition home or self-care (01) ==
LOC: LAB.WCP 09:00
PROVIDERS: ATTEND Family Medicine
DX: R41.3 Other amnesia (principal); F41.8 Other specified anxiety disorders
CPT/HCPCS: 36415; 80053; 81599; 82607; 83921; 84443; 85025; 86592

== ENCOUNTER 2019-08-01 07:00 | Outpatient (CLI) | payer MEDICAID, MEDICARE ==
[2019-08-01 18:50] LABS: BASOPHILS # (AUTO) 0.1 10^3/uL (0.0-0.1); BASOPHILS % (AUTO) 0.9 %; EOSINOPHILS # (AUTO) 0.2 10^3/uL (0.0-0.7); EOSINOPHILS % (AUTO) 3.4 %; HGB - HEMOGLOBIN 13.8 g/dL (14.0-18.0); LYMPHOCYTES # (AUTO) 1.3 10^3/uL (1.5-3.5); LYMPHOCYTES % (AUTO) 24.9 %; MEAN CORPUSCULAR HEMOGLOBIN 31.9 pg (27.0-31.0); MEAN CORPUSCULAR HGB CONC 33.3 g/dL (32.0-36.0); MEAN CORPUSCULAR VOLUME 95.8 fL (80.0-94.0); MEAN PLATELET VOLUME 9.1 fL (7.4-11.4); MONOCYTES # (AUTO) 0.5 10^3/uL (0.0-1.0); MONOCYTES % (AUTO) 9.9 %; NEUTROPHILS # (AUTO) 3.2 10^3/uL (1.5-6.6); NEUTROPHILS % (AUTO) 60.7 %; PLT - PLATELET COUNT 146 10^3/uL (130-450); RED BLOOD COUNT 4.32 10^6/uL (4.70-6.10); WHITE BLOOD COUNT 5.3 x10^3/uL (4.8-10.8)
[2019-08-01 19:17] LABS: CREATININE,URINE 214.1 mg/dL; MICROALBUM/CREATININE RATIO,UR 8.4 ug/mg (<30.0); MICROALBUMIN,URINE 1.8 mg/dL (0-300.0)
[2019-08-01 19:18] LABS: HB2 TOTAL 13.9 g/dL; HEMOGLOBIN A1C 0.63 g/dL; HEMOGLOBIN A1C % 6.3 % (4.6-6.2)
[2019-08-01 19:23] LABS: ALBUMIN 4.6 g/dL (3.2-5.5); ALBUMIN/GLOBULIN RATIO 1.8 (1.0-2.2); ALKALINE PHOSPHATASE 55 IU/L (42-121); ALT ALANINE AMINOTRANSFERASE 21 IU/L (10-60); AST ASPARTATE AMINOTRANSFERASE 21 IU/L (10-42); BUN - BLOOD UREA NITROGEN 16 mg/dL (6-20); CALCIUM 9.2 mg/dL (8.5-10.3); CARBON DIOXIDE - CO2 28 mmol/L (21-32); CHLORIDE 105 mmol/L (101-111); CHOL/HDL RATIO 4.5 (<5.0); CHOLESTEROL 152 mg/dL; CREATININE 0.9 mg/dL (0.6-1.2); GFR - MDRD 81 (>89); GLUCOSE 127 mg/dL (70-100); HDL CHOLESTEROL 34 mg/dL; LDL CHOLESTEROL,CALCULATED 97 mg/dL; LDL/HDL RATIO 2.9 (<3.6); SODIUM 141 mmol/L (135-145); TOTAL PROTEIN 7.2 g/dL (6.7-8.2); VLDL CHOLESTEROL 21 mg/dL
== END 2019-08-01 23:59 | disposition home or self-care (01) ==
LOC: LAB.WCP 07:00
PROVIDERS: ATTEND Family Medicine
DX: E78.5 Hyperlipidemia, unspecified (principal); R73.01 Impaired fasting glucose; I10 Essential (primary) hypertension
CPT/HCPCS: 36415; 80053; 80061; 82043; 82570; 83036; 83721; 84443; 85025

== ENCOUNTER 2020-10-13 07:00 | Outpatient (CLI) | payer MEDICARE ==
--- NOTE | 2020-10-14 11:23 | XRAY Report ---
PROCEDURE: Chest 2 View X-Ray INDICATIONS: SHORTNESS OF BREATH TECHNIQUE: 2 view(s) of the chest. COMPARISON: None. FINDINGS: Surgical changes and devices: None. Lungs and pleura: No pleural effusions or pneumothorax. Lungs are clear. Mediastinum: Mediastinal contours are normal. Heart size is normal. Bones and chest wall: No suspicious bony abnormalities. Soft tissues appear unremarkable. IMPRESSION: Normal for age, source of current symptoms is not seen. Reviewed by: Ugo Coe MD on 10/14/2020 11:22 AM [facility] Approved by: Ugo Coe MD on 10/14/2020 11:22 AM [facility] Station ID: [id number]
== END 2020-10-13 23:59 | disposition home or self-care (01) ==
LOC: DI.N 07:00
PROVIDERS: ATTEND Family Medicine
DX: R06.02 Shortness of breath (principal); Z20.822 Contact with and (suspected) exposure to COVID-19
CPT/HCPCS: 71046; U0004

== ENCOUNTER 2021-03-31 12:29 | Emergency (ER) | payer MEDICARE ==
[2021-03-31 12:58] LABS: BASOPHILS % (AUTO) 0.9 %; EOSINOPHILS # (AUTO) 0.2 10^3/uL (0.0-0.7); EOSINOPHILS % (AUTO) 4.7 %; HCT - HEMATOCRIT 37.4 % (42.0-52.0); HGB - HEMOGLOBIN 12.9 g/dL (14.0-18.0); LYMPHOCYTES # (AUTO) 1.6 10^3/uL (1.5-3.5); LYMPHOCYTES % (AUTO) 36.2 %; MEAN CORPUSCULAR HEMOGLOBIN 32.2 pg (27.0-31.0); MEAN CORPUSCULAR HGB CONC 34.5 g/dL (32.0-36.0); MEAN CORPUSCULAR VOLUME 93.3 fL (80.0-94.0); MEAN PLATELET VOLUME 8.3 fL (7.4-11.4); MONOCYTES # (AUTO) 0.4 10^3/uL (0.0-1.0); MONOCYTES % (AUTO) 9.7 %; NEUTROPHILS # (AUTO) 2.2 10^3/uL (1.5-6.6); NEUTROPHILS % (AUTO) 48.3 %; PLT - PLATELET COUNT 132 10^3/uL (130-450); RED BLOOD COUNT 4.01 10^6/uL (4.70-6.10); RED CELL DISTRIBUTION WIDTH 12.9 % (12.0-15.0); WHITE BLOOD COUNT 4.5 x10^3/uL (4.8-10.8)
--- NOTE | 2021-03-31 12:59 | XRAY Report ---
PROCEDURE: Chest 1 View X-Ray INDICATIONS: Chest pain TECHNIQUE: One view of the chest was acquired. COMPARISON: 10/13/2020 FINDINGS: Surgical changes and devices: None. Lungs and pleura: No pleural effusions or pneumothorax. Lungs are clear. Mediastinum: Mediastinal contours appear normal. Heart size is normal. Bones and chest wall: No suspicious bony lesions. Overlying soft tissues appear unremarkable. IMPRESSION: No acute cardiopulmonary process demonstrated radiographically. Reviewed by: Minor Villalobos MD on 03/31/2021 12:58 PM PDT Approved by: Minor Villalobos MD on 03/31/2021 12:58 PM PDT Station ID: [id number]
[2021-03-31 13:17] LABS: ALBUMIN 4.6 g/dL (3.2-5.5); ALBUMIN/GLOBULIN RATIO 1.6 (1.0-2.2); BILIRUBIN,TOTAL 0.9 mg/dL (0.2-1.0); CALCIUM 9.3 mg/dL (8.5-10.3); CREATININE 0.8 mg/dL (0.6-1.2); TOTAL PROTEIN 7.4 g/dL (6.7-8.2)
--- NOTE | 2021-03-31 14:01 | ED Physician Documentation ---
History of Present Illness - Stated complaint Stated Complaint: CHEST PX, SOA - Chief complaint Chief Complaint: Cardiac - Additonal information Additional information: 80-year-old male presents the emergency department for evaluation of exertional chest pain that began about 1 He denies anyMonth ago. He reports that when he walks too far too fast he developed substernal chest pressure. There is no radiation. This resolves with rest. Previous history of coronary artery disease. He is a non-smoker. He does carry history of hypertension for which he takes labetalol. Review of Systems Constitutional: denies: Fever, Chills Eyes: reports: Reviewed and negative Ears: reports: Reviewed and negative Nose: reports: Reviewed and negative Throat: reports: Reviewed and negative Cardiac: reports: Chest pain / pressure. denies: Palpitations, Pedal edema, Calf pain Respiratory: reports: Reviewed and negative GI: reports: Reviewed and negative : reports: Reviewed and negative PD PAST MEDICAL HISTORY - Past Medical History Cardiovascular: Hypertension Respiratory: None Neuro: None Endocrine/Autoimmune: Other GI: GERD, Hiatal hernia : None HEENT: None Psych: Depression, Anxiety Musculoskeletal: None Derm: None - Past Surgical History Past Surgical History: Yes General: Hiatal hernia repair, Other - Present Medications Home Medications: Ambulatory Orders Medication Instructions Recorded Confirmed Aspirin [Aspir 81] 81 mg PO DAILY 06/11/15 01/06/16 Multivitamin [Multi-Vitamin Daily] 1 each PO DAILY 06/11/15 01/06/16 Omeprazole [Prilosec] 20 mg PO DAILY 06/11/15 01/06/16 Labetalol [Trandate] 100 mg PO BID 06/25/18 06/25/18 QUEtiapine [SEROquel] 50 mg PO DAILY PM 06/25/18 06/25/18 hydrOXYzine pamoate [Hydroxyzine 25 mg PO Q8H PRN 06/25/18 06/25/18 Pamoate] lamoTRIgine [Lamotrigine Odt] 25 mg PO BID 06/25/18 06/25/18 LORazepam [Lorazepam] 0.5 mg PO TID PRN #14 tablet 06/26/18 Quetiapine Fumarate [Seroquel] 50 mg PO BID #60 tablet 06/26/18 Nitroglycerin [Nitrostat] 0.3 mg SL BID PRN #60 03/31/21 - Allergies Allergies/Adverse Reactions: Allergies Allergy/AdvReac Type Severity Reaction Status Date / Time Penicillins Allergy Unknown Verified 06/25/18 21:43 - Social History Does the pt smoke?: No Smoking Status: Never smoker Does the pt drink ETOH?: No Does the pt have substance abuse?: No - Immunizations Immunizations are current?: Yes - POLST Patient has POLST: No PD ED PE NORMAL - General General: Alert and oriented X 3, No acute distress - HEENT HEENT: PERRL - Neck Neck: Supple, no meningeal sign - Cardiac Cardiac: RRR, No murmur - Respiratory Respiratory: Clear bilaterally - Abdomen Abdomen: Normal bowel sounds, Soft, Non tender, Non distended Results - Vitals Vitals: Vital Signs - 24 hr 03/31/21 03/31/21 03/31/21 12:35 12:58 15:02 Temperature 36.8 C 36.4 C L 36.5 C Heart Rate 73 72 66 Respiratory 22 12 17 Rate Blood Pressure 141/89 H 140/80 H 167/85 H O2 Saturation 97 96 96 Oxygen O2 Source Room air - EKG (time done) 1233 Rate: Rate (enter#) (69) Rhythm: NSR [place]: Normal Intervals: Normal [place] QRS: Normal Ischemia: Normal ST segments Compare to prior EKG: Old EKG unavailable Computer interpretation: Agree with computer - Labs Labs: Laboratory Tests 03/31/21 03/31/21 03/31/21 12:53 12:53 12:53 WBC 4.5 L RBC 4.01 L Hgb 12.9 L Hct 37.4 L MCV 93.3 MCH 32.2 H MCHC 34.5 RDW 12.9 Plt Count 132 MPV 8.3 Neut # (Auto) 2.2 Lymph # (Auto) 1.6 [place] # (Auto) 0.4 Eos # (Auto) 0.2 Baso # (Auto) 0.0 Absolute Nucleated RBC 0.00 Nucleated RBC % 0.0 Sodium 142 Potassium 4.0 Chloride 107 Carbon Dioxide 26 Anion Gap 9.0 BUN 15 Creatinine 0.8 Estimated GFR (MDRD) 93 Glucose 137 H Calcium 9.3 Total Bilirubin 0.9 AST 26 ALT 29 Alkaline Phosphatase 54 Troponin I High Sens B-Natriuretic Peptide 163 H Total Protein 7.4 Albumin 4.6 Globulin 2.8 Albumin/Globulin Ratio 1.6 Lipase 18 L 03/31/21 12:53 WBC RBC Hgb Hct MCV MCH MCHC RDW Plt Count MPV Neut # (Auto) Lymph # (Auto) [place] # (Auto) Eos # (Auto) Baso # (Auto) Absolute Nucleated RBC Nucleated RBC % Sodium Potassium Chloride Carbon Dioxide Anion Gap BUN Creatinine Estimated GFR (MDRD) Glucose Calcium Total Bilirubin AST ALT Alkaline Phosphatase Troponin I High Sens 7.8 B-Natriuretic Peptide Total Protein Albumin Globulin Albumin/Globulin Ratio Lipase PD MEDICAL DECISION MAKING - ED course Complexity details: reviewed results, d/w patient ED course: Well-appearing 80-year-old male presents emergency department for evaluation of exertional chest pain that is been ongoing for 1 month. He reports that if he walks too fast or too long he develops substernal chest pain that does not radiate. It improves with rest. No history of similar in the past. Non-smoker though he does carry history of hypertension. This gentleman has a longstanding history however of being quite active running 10 miles a day with the I did a bahman. Screening EKG is nonischemic his high-sensitivity troponin is negative. Chest x-ray without acute focal opacities. This gentleman however given his age would benefit from an outpatient stress test with imaging. We have arranged this with his primary care provider in tomorrow morning he will present to nuclear medicine for the stress test. He is currently taking a daily aspirin and I will also prescribe some nitroglycerin to be used as needed for exertional angina. Emergent return precautions were discussed for failure of chest putting to resolve despite the nitroglycerin use. Departure - Departure Disposition: 01 Home, Self Care Clinical Impression: Exertional angina Condition: Stable Record reviewed to determine appropriate education?: Yes Instructions: Angina Dc, Nitroglycerin Fast Act Dc Follow-Up: John Gurrola MD [Primary Care Provider] - Prescriptions: Nitroglycerin [Nitrostat] 0.3 mg SL BID PRN #60 PRN Reason: Angina Comments: Fill with an F, you were seen today for chest pain that you develop when walking. This is called angina and can be a sign of development of coronary artery disease. Your screening labs, chest x-ray and EKG today however are all essentially normal. But it is important that you get an outpatient stress test with imaging. This has been arranged for tomorrow morning at 9 AM. Please come to the hospital at 830 test. Please do not drink any caffeine have chocolate or decaf sodas between now and tomorrow in the morning. You can have fruit juice and wa ter however. Please continue taking your daily 81 mg aspirin. I have prescribed nitroglycerin a tablet that you can take under the tongue if you develop exertional chest pain. If the use of the nitroglycerin does not resolve your chest pain you should return immediately to the emergency department. It is going to be very important you continue follow-up with your primary care doctor Dr. Gurrola as soon as possible to discuss the stress test results and further evaluation or treatment that may be necessary.
[2021-03-31 15:06] VITALS: BP 167/85
== END 2021-03-31 15:39 | disposition home or self-care (01) ==
LOC: ED 12:29
DX: I20.1 Angina pectoris with documented spasm (principal); I11.9 Hypertensive heart disease without heart failure
CPT/HCPCS: 36415; 80053; 83690; 83880; 84484; 85025; 93005; 99284

== ENCOUNTER 2021-04-01 08:23 | Outpatient (CLI) | payer MEDICARE ==
--- NOTE | 2021-04-01 09:55 | CARDIAC PROCEDURE NOTE ---
Stress Test Report Service Date: 04/01/21 Service Time: 09:00 Ordering Provider: Christal Lopez PA-C Indication for Test: Assess new onset exertional chest discomfort. Significant Medical History: -The patient is an 80-year-old generally healthy gentleman who was seen at the [facility] Emergency Department yesterday, with concern for new onset exertional chest discomfort occurring over the past 1 month. He reported that when he walks too far or too fast he develops substernal chest pressure, that does not radiate and resolves with rest. It is not associated with marked dyspnea, palpitations, pedal edema or calf pain. There was no EKG evidence of ischemia or prior infarct and HS-Tn was normal. -Upon further review prior to today's test he denies any occurrence of rest discomfort and he is clear that the discomfort has been coming on with a progressively lower exertional threshold, most recently "just walking around outside my house", whereas initially it was with walking more vigorously for 30- 60 minutes. He has been on ASA for several years and continues on labetalol, 100 mg bid for HTN. He confirms that upon resting the discomfort resolves in 5-10 minutes. Cardiac Risk Factors: The patient has a history of treated hypertension (with labetalol); he has no history of recent prior cigarette smoking (only a few years during his 20's), known hyperlipidemia, diabetes, nor known family history of ASCVD events in primary relatives. Type of Stress Test: ETT with Myocardial Perfusion Imaging Procedure: -Exercise Treadmill Test- After signing informed consent, resting SPECT images were obtained. The patient then performed treadmill exercise using a Lasha protocol. The patient exercised for 5 minutes 36 seconds and achieved a peak heart rate of 111 (79 percent predicted maximum heart rate for age), and an estimated workload of 7 METS. The test was terminated due to chest pain occurred before achieving target HR and a drop in blood pressure from baseline standing level. Resting heart rate: 64 Peak heart rate: 111 Normal response to exercise. Resting BP: 161/93 Peak BP: 124/61 Hypotensive BP response to exercise. Rhythm during exercise: Sinus rhythm throughout Symptoms: In stage 2 he developed leg fatigue that was progressive, followed by mild chest pressure (similar to that experienced clinically). EKG at rest showed normal sinus rhythm, early precordial R/S transition, borderline prolonged QTc, with normal QRS/ST/T pattern throughout. EKG at peak stress showed horizontal ST depression, maximal 0.8 mm in lead II and 0.6 mm in lead V5, thus borderline positive for ischemia. In Recovery heart rate rapidly normalized and BP increased sequentially, to prior baseline elevated level. Nuclear imaging was performed following stress and interpretation will be reported separately. Summary: 1) Average exercise tolerance as evidenced by JEANIE of 5%. 2) Normal resting EKG. 3) The test was terminated prior to patient achieving a diagnostic HR increase (at 79% PMHR; patient took labetalol this AM as was not instructed to hold it), due to general perception of inability to walk further, in the setting of BP decrease with exercise, recreation of index chest discomfort, and ST depression of borderline significance. 4) Abnormal BP response to exercise. 5) Borderline ischemic changes by EKG criteria were seen at peak stress. 6) Nuclear images were obtained and are reported separately. Findings include a moderate sized, fjjxaiim-et-vhdpxh, fixed perfusion defect in the left ventricular apex, compatible with a prior myocardial infarction, with suggestion of minimal perry-infarct ischemia. The left ventricular volume is normal and wall motion analysis suggests diffuse hypokinesis, with apical dyskinesis. There is no evidence for transient ischemic dilation on this study. 7) Patient's primary provider, Dr Gurrola, was contacted after the stress test, and the following recommendations made: start daily nitropatch 0.1 mg/hr, keep SL NTG available for significant recurrent discomfort and avoid strenuous activity pending further evaluation, which Dr Gurrola will discuss with patient after interpretation of imaging has been completed. CONCLUSIONS: 1. Abnormal hemodynamic response to exercise, with borderline ischemic EKG changes and SPECT evidence of likely prior apical infarct, with mild periscar ischemia. 2. Recommendations made to patient's primary provider for prescription of daily nitroglycerin patch (wear 8 AM->8 PM), keep SL NTG in case of recurrent pain and avoid strenuous activity prior to recommended urgent Cardiology evaluation.
--- NOTE | 2021-04-01 15:11 | Nuclear Medicine Report ---
PROCEDURE: Rest and exercise myocardial perfusion SPECT with gated imaging and ejection fraction INDICATIONS: CHEST PAIN/ EXERCISE RADIOPHARMACEUTICAL: 14.6 mCi Tc-99m Myoview IV at rest and 43.4 mCi Tc-99m Myoview IV at peak exerc ise. Fop-kih-xvikmbfz was performed. TECHNIQUE: Radiopharmaceutical was injected at peak stress test, and also at rest. SPECT images wer e obtained. SPECT myocardial perfusion images were displayed in short axis, horizontal long axis, an d vertical long axis views. Gated images were reviewed using Auto[employer] software. COMPARISON: None available. FINDINGS: Raw data: There is good myocardial labeling by radiotracer. No significant motion artifacts. Lung- to-heart ratio is 0.45 (normal is less than 0.46 for tetrafosmin tracer). Left ventricle function: Gated images demonstrate normal left ventricle wall thickening. There is di ffuse hypokinesia of the left ventricle. The apex is dyskinetic. No transient ischemic dilation; TID is 1.02 (normal less than 1.30). The left ventricle resting end-diastolic volume is normal. Left sacha tricle stress ejection fraction is 39%; normal values are above 45%. Myocardial perfusion: There is a moderate size, qszbrwws-po-iuzhtd, fixed perfusion defect in the ap ex, consistent with myocardial infarction. There is minimal borderline ischemia in the infarcted terr itory. IMPRESSION: Abnormal myocardial perfusion images. 1. There is a moderate size, xjkdvcpo-zz-hgnxps, fixed perfusion defect in the left ventricular apex, compatible with a myocardial infarct. 2. Minimal perry-infarct ischemia is present. 3. Normal left ventricular volume. There is diffuse hypokinesia of the left ventricle. The apex is dy skinetic. The left ventricular ejection fraction is vzca-dr-sqjumajeuu decreased. No transient ischem ic dilation of the left ventricle. 4. Please correlate with stress EKG result. The result was discussed with KASANDRA Figueroa, Dr. Gurrola's office. PQRS ATTESTATIONS: Measure 322 - Is this imaging test primarily performed on a low-risk surgery patient for preoperative evaluation within 30 days preceding their low-risk non-cardiac surgery? Low-risk surgery is defined as cardiac or myocardial infarction less than 1%, including (but not limited to) endoscopic pr ocedures, superficial procedures, cataract surgery, and excisional breast surgery: Answer: No Measure 323 - Is this imaging test performed primarily for the monitoring of an asymptomatic patient who had percutaneous coronary intervention on the visit date or within 2 years of the visit date? An swer: No Measure 324 - Is this imaging test performed primarily for the initial detection and risk assessment on an asymptomatic, low coronary heart disease patient? Low CHD risk definition = clinicians should consider the maximum number of available patient factors used to estimate risk based on Elmer (A TP III criteria), typically age, gender, diabetes, smoking status, and use of blood pressure medicati on, and integrate age appropriate estimates for missing elements, such as LDL or standard blood press ure. Answer: No Reviewed by: Keith Amador MD on 04/01/2021 3:10 PM PDT Approved by: Keith Amador MD on 04/01/2021 3:10 PM PDT Station ID: [id number]
== END 2021-04-01 08:24 | disposition home or self-care (01) ==
LOC: DI 08:23
PROVIDERS: ATTEND Physician Assistant Medical
DX: R07.9 Chest pain, unspecified (principal); R94.39 Abnormal result of other cardiovascular function study; I10 Essential (primary) hypertension; Z87.891 Personal history of nicotine dependence
CPT/HCPCS: 78452; 93017; A9500

== ENCOUNTER 2021-04-15 10:33 | Outpatient (CLI) | payer MEDICARE ==
[2021-04-15 17:57] LABS: BASOPHILS # (AUTO) 0.1 10^3/uL (0.0-0.1); BASOPHILS % (AUTO) 1.1 %; EOSINOPHILS # (AUTO) 0.3 10^3/uL (0.0-0.7); EOSINOPHILS % (AUTO) 5.9 %; HCT - HEMATOCRIT 38.1 % (42.0-52.0); LYMPHOCYTES # (AUTO) 1.5 10^3/uL (1.5-3.5); LYMPHOCYTES % (AUTO) 33.3 %; MEAN CORPUSCULAR HEMOGLOBIN 32.5 pg (27.0-31.0); MEAN CORPUSCULAR HGB CONC 34.1 g/dL (32.0-36.0); MEAN CORPUSCULAR VOLUME 95.3 fL (80.0-94.0); MEAN PLATELET VOLUME 9.6 fL (7.4-11.4); MONOCYTES # (AUTO) 0.5 10^3/uL (0.0-1.0); MONOCYTES % (AUTO) 11.8 %; NEUTROPHILS # (AUTO) 2.2 10^3/uL (1.5-6.6); NEUTROPHILS % (AUTO) 47.7 %; PLT - PLATELET COUNT 167 10^3/uL (130-450); RED CELL DISTRIBUTION WIDTH 13.1 % (12.0-15.0); WHITE BLOOD COUNT 4.6 x10^3/uL (4.8-10.8)
[2021-04-15 18:13] LABS: PT - PROTHROMBIN TIME 11.4 secs (9.9-12.6)
[2021-04-15 18:29] LABS: ALBUMIN 4.7 g/dL (3.2-5.5); ALBUMIN/GLOBULIN RATIO 1.6 (1.0-2.2); ALKALINE PHOSPHATASE 52 IU/L (42-121); ALT ALANINE AMINOTRANSFERASE 24 IU/L (10-60); AST ASPARTATE AMINOTRANSFERASE 21 IU/L (10-42); BUN - BLOOD UREA NITROGEN 15 mg/dL (6-20); CALCIUM 9.5 mg/dL (8.5-10.3); CARBON DIOXIDE - CO2 27 mmol/L (21-32); CHLORIDE 105 mmol/L (101-111); CHOL/HDL RATIO 4.9 (<5.0); CHOLESTEROL 187 mg/dL; GFR - MDRD 72 (>89); GLUCOSE 111 mg/dL (70-100); HDL CHOLESTEROL 38 mg/dL; LDL CHOLESTEROL,CALCULATED 111 mg/dL; LDL/HDL RATIO 2.9 (<3.6); POTASSIUM 4.2 mmol/L (3.5-5.0); SODIUM 142 mmol/L (135-145); TOTAL PROTEIN 7.6 g/dL (6.7-8.2); TRIGLYCERIDES 191 mg/dL; VLDL CHOLESTEROL 38 mg/dL
[2021-04-15 18:32] LABS: THYROID STIMULATING HORMONE 1.99 uIU/mL (0.34-5.60)
[2021-04-15 20:34] LABS: ESTIMATED AVERAGE GLUCOSE 126 mg/dL (70-100)
== END 2021-04-15 23:59 | disposition home or self-care (01) ==
LOC: LAB.WCP 10:33
PROVIDERS: ATTEND Internal Medicine
DX: I10 Essential (primary) hypertension (principal); R73.01 Impaired fasting glucose; R07.9 Chest pain, unspecified; F41.9 Anxiety disorder, unspecified; F32.9 Major depressive disorder, single episode, unspecified; R94.39 Abnormal result of other cardiovascular function study; E78.5 Hyperlipidemia, unspecified; I24.9 Acute ischemic heart disease, unspecified
CPT/HCPCS: 36415; 80053; 80061; 82043; 83036; 83721; 84443; 85025; 85610

== ENCOUNTER 2021-11-20 16:53 | Emergency (ER) | payer MEDICARE ==
[2021-11-20 17:00] VITALS: BP 142/71
[2021-11-20] MEDS ORDERED: TETANUS/DIPHTHERIA/PERTUSSIS 0.5 ML SYRINGE IM ONE (17:01)
[2021-11-20] MEDS ORDERED: BACITRACIN ZINC OINT 1 PACKET TOP STA (17:04)
--- NOTE | 2021-11-20 17:07 | ED Physician Documentation ---
PD HPI UPPER EXT INJURY - Stated complaint Stated Complaint: LT HAND CUT - Chief complaint Chief Complaint: Laceration - History obtained from History obtained from: Patient - History of Present Illness Location: Left, Hand Type of injury: Laceration Pain level max: 1 Pain level now: 0 Improved by: Rest Worsened by: Moving, Palpating Associated symptoms: No: Weakness, Numbness, Tingling, Swelling - Additonal information Additional information: 81-year-old male sustained a small abrasion/laceration to the dorsal aspect of the left hand. This was on a metal railing at the [facility]. States last tetanus shot was about 40 years ago. No active bleeding. Here for tetanus shot. No numbness or tingling. Using the hand freely Review of Systems Constitutional: denies: Fever GI: denies: Nausea, Vomiting, Diarrhea Skin: denies: Rash PD PAST MEDICAL HISTORY - Past Medical History Cardiovascular: Hypertension Respiratory: None Neuro: None Endocrine/Autoimmune: Other GI: GERD, Hiatal hernia : None HEENT: None Psych: Depression, Anxiety Musculoskeletal: None Derm: None - Past Surgical History Past Surgical History: Yes General: Hiatal hernia repair, Other - Present Medications Home Medications: Ambulatory Orders Medication Instructions Recorded Confirmed Aspirin [Aspir 81] 81 mg PO DAILY 06/11/15 01/06/16 Multivitamin [Multi-Vitamin Daily] 1 each PO DAILY 06/11/15 01/06/16 Omeprazole [Prilosec] 20 mg PO DAILY 06/11/15 01/06/16 Labetalol [Trandate] 100 mg PO BID 06/25/18 06/25/18 QUEtiapine [SEROquel] 50 mg PO DAILY PM 06/25/18 06/25/18 hydrOXYzine pamoate [Hydroxyzine 25 mg PO Q8H PRN 06/25/18 06/25/18 Pamoate] lamoTRIgine [Lamotrigine Odt] 25 mg PO BID 06/25/18 06/25/18 LORazepam [Lorazepam] 0.5 mg PO TID PRN #14 tablet 06/26/18 Quetiapine Fumarate [Seroquel] 50 mg PO BID #60 tablet 06/26/18 Nitroglycerin [Nitrostat] 0.3 mg SL BID PRN #60 03/31/21 - Allergies Allergies/Adverse Reactions: Allergies Allergy/AdvReac Type Severity Reaction Status Date / Time Penicillins Allergy Unknown Verified 11/20/21 16:56 - Social History Does the pt smoke?: No Smoking Status: Never smoker Does the pt drink ETOH?: No Does the pt have substance abuse?: No - Immunizations Immunizations are current?: Yes - POLST Patient has POLST: No PD ED PE NORMAL - Vitals Vital signs reviewed: Yes - General General: Alert and oriented X 3, No acute distress - Derm Derm: Warm and dry - Extremities Extremities: Other (Small abrasion to the dorsum of the left hand, near the fifth MCP. It is over the distal metacarpal. Not over the joint. Neurovascular intact. No bony tenderness. Full range of motion.) - Neuro Neuro: Alert and oriented X 3 Results - Vitals Vitals: Vital Signs - 24 hr 11/20/21 16:57 Temperature 36.5 C Heart Rate 69 Respiratory 16 Rate Blood Pressure 142/71 H O2 Saturation 97 Oxygen O2 Source Room air PD MEDICAL DECISION MAKING - ED course Complexity details: considered differential, d/w patient ED course: Tdap given. Wound was cleansed and bandaged. Warnings of infection and instructions on wound care given at bedside. Patient counseled regarding signs and symptoms for which I believe and urgent re-evaluation would be necessary. Patient with good understanding of and agreement to plan and is comfortable going home at this time This document was made in part using voice recognition software. While efforts are made to proofread this document, sound alike and grammatical errors may occur. Departure - Departure Disposition: 01 Home, Self Care Clinical Impression: Hand laceration Qualifiers: Encounter type: initial encounter Foreign body presence: without foreign body Laterality: left Qualified Code(s): S61.412A - Laceration without foreign body of left hand, initial encounter Condition: Good Instructions: ED Laceration Hand Follow-Up: John Gurrola MD [Primary Care Provider] - As Needed Comments: Keep the wound clean. Return if you worsen. You were given a tetanus shot today. Return if you notice redness, swelling or drainage from the wound. Discharge Date/Time: 11/20/21 17:17
== END 2021-11-20 17:17 | disposition home or self-care (01) ==
LOC: ED 16:53
DX: S61.412A Laceration without foreign body of left hand, initial encounter (principal); W26.9XXA Contact with unspecified sharp object(s), initial encounter; Y92.814 Boat as the place of occurrence of the external cause; I10 Essential (primary) hypertension; Z23 Encounter for immunization; Z71.85 Encounter for immunization safety counseling
CPT/HCPCS: 90471; 99282; 99283

== ENCOUNTER 2022-06-17 13:20 | Outpatient (CLI) | payer MEDICARE ==
[2022-06-17 17:42] LABS: EOSINOPHILS # (AUTO) 0.2 10^3/uL (0.0-0.7); EOSINOPHILS % (AUTO) 5.5 %; HCT - HEMATOCRIT 37.6 % (42.0-52.0); HGB - HEMOGLOBIN 12.5 g/dL (14.0-18.0); LYMPHOCYTES # (AUTO) 1.4 10^3/uL (1.5-3.5); LYMPHOCYTES % (AUTO) 32.7 %; MEAN CORPUSCULAR HEMOGLOBIN 31.2 pg (27.0-31.0); MEAN CORPUSCULAR HGB CONC 33.2 g/dL (32.0-36.0); MEAN CORPUSCULAR VOLUME 93.8 fL (80.0-94.0); MEAN PLATELET VOLUME 9.2 fL (7.4-11.4); MONOCYTES # (AUTO) 0.7 10^3/uL (0.0-1.0); NEUTROPHILS # (AUTO) 1.9 10^3/uL (1.5-6.6); NEUTROPHILS % (AUTO) 44.6 %; PLT - PLATELET COUNT 119 10^3/uL (130-450); RED BLOOD COUNT 4.01 10^6/uL (4.70-6.10); RED CELL DISTRIBUTION WIDTH 12.8 % (12.0-15.0); WHITE BLOOD COUNT 4.2 x10^3/uL (4.8-10.8)
[2022-06-17 18:11] LABS: ALBUMIN 4.7 g/dL (3.2-5.5); ALBUMIN/GLOBULIN RATIO 1.6 (1.0-2.2); ALKALINE PHOSPHATASE 58 IU/L (42-121); ALT ALANINE AMINOTRANSFERASE 21 IU/L (10-60); AST ASPARTATE AMINOTRANSFERASE 22 IU/L (10-42); BILIRUBIN,TOTAL 0.7 mg/dL (0.2-1.0); BUN - BLOOD UREA NITROGEN 16 mg/dL (6-20); CALCIUM 9.4 mg/dL (8.5-10.3); CARBON DIOXIDE - CO2 30 mmol/L (21-32); CHLORIDE 103 mmol/L (101-111); CHOL/HDL RATIO 2.6 (<5.0); CHOLESTEROL 95 mg/dL; CREATININE 0.9 mg/dL (0.6-1.2); GFR - MDRD 81 (>89); GLUCOSE 98 mg/dL (70-100); HDL CHOLESTEROL 36 mg/dL; LDL CHOLESTEROL,CALCULATED 24 mg/dL; LDL/HDL RATIO 0.7 (<3.6); POTASSIUM 4.3 mmol/L (3.5-5.0); SODIUM 139 mmol/L (135-145); TOTAL PROTEIN 7.7 g/dL (6.7-8.2); TRIGLYCERIDES 176 mg/dL; VLDL CHOLESTEROL 35 mg/dL
[2022-06-17 18:12] LABS: ESTIMATED AVERAGE GLUCOSE 134 mg/dL (70-100); HEMOGLOBIN A1c% 6.3 % (4.27-6.07)
[2022-06-17 18:16] LABS: THYROID STIMULATING HORMONE 2.62 uIU/mL (0.34-5.60)
== END 2022-06-17 13:21 | disposition home or self-care (01) ==
LOC: LAB.N 13:20
PROVIDERS: ATTEND Internal Medicine
DX: I25.10 Atherosclerotic heart disease of native coronary artery without angina pectoris (principal); R73.01 Impaired fasting glucose; F32.A Depression, unspecified; F41.9 Anxiety disorder, unspecified
CPT/HCPCS: 36415; 80053; 80061; 83036; 83721; 84443; 85025

== ENCOUNTER 2022-06-20 03:05 | Emergency (ER) | payer MEDICARE ==
--- NOTE | 2022-06-20 03:46 | ED Physician Documentation ---
PD HPI CHEST PAIN - Stated complaint Stated Complaint: L SIDE PX - Chief complaint Chief Complaint: General - History obtained from History obtained from: Patient - History of Present Illness Timing - onset: How many days ago (3) Timing - details: Gradual onset Pain level now: 3 Quality: Pain Location: Left chest Radiation: Back Improved by: Nothing Worsened by: Other (no exacerbating factors) Associated symptoms: No: Shortness of air, Diaphoresis, Nausea, Vomiting, Cough Similar symptoms before: Has not had sx before Recently seen: Clinic - Additional information Additional information: c/o 3-4 days of left low chest/left upper abdominal pain radiating around left flank to left lower parathoracic area of back. He denies h/o similar symptoms. He was seen in a walk-in clinic 2 days ago for this and, per patient, gastritis was suspected. Per patient, no testing was performed. Patient presents at this t [facility] due to persistence of the pain. He has developed a rash since being seen at the clinic. He denies fever, cough, dyspnea. Review of Systems Constitutional: denies: Fever Cardiac: reports: Chest pain / pressure. denies: Palpitations, Pedal edema Respiratory: denies: Dyspnea, Cough GI: reports: Reviewed and negative Skin: reports: Rash PD PAST MEDICAL HISTORY - Past Medical History Past Medical History: Yes Cardiovascular: Hypertension Respiratory: None Neuro: None Endocrine/Autoimmune: Other GI: GERD, Hiatal hernia : None HEENT: None Psych: Depression, Anxiety Musculoskeletal: None Derm: None - Past Surgical History Past Surgical History: Yes General: Hiatal hernia repair, Other - Present Medications Home Medications: Ambulatory Orders Medication Instructions Recorded Confirmed Aspirin [Aspir 81] 81 mg PO DAILY 06/11/15 01/06/16 Multivitamin [Multi-Vitamin Daily] 1 each PO DAILY 06/11/15 01/06/16 Omeprazole [Prilosec] 20 mg PO DAILY 06/11/15 01/06/16 Labetalol [Trandate] 100 mg PO BID 06/25/18 06/25/18 QUEtiapine [SEROquel] 50 mg PO DAILY PM 06/25/18 06/25/18 hydrOXYzine pamoate [Hydroxyzine 25 mg PO Q8H PRN 06/25/18 06/25/18 Pamoate] lamoTRIgine [Lamotrigine Odt] 25 mg PO BID 06/25/18 06/25/18 LORazepam [Lorazepam] 0.5 mg PO TID PRN #14 tablet 06/26/18 Quetiapine Fumarate [Seroquel] 50 mg PO BID #60 tablet 06/26/18 Nitroglycerin [Nitrostat] 0.3 mg SL BID PRN #60 03/31/21 valACYclovir [Valtrex] 1,000 mg PO TID #40 tablet 06/20/22 - Allergies Allergies/Adverse Reactions: Allergies Allergy/AdvReac Type Severity Reaction Status Date / Time Penicillins Allergy Unknown Verified 06/20/22 03:21 - Social History Does the pt smoke?: No Smoking Status: Never smoker Does the pt drink ETOH?: No Does the pt have substance abuse?: No - Immunizations Immunizations are current?: Yes - POLST Patient has POLST: No PD ED PE NORMAL - Vitals Vital signs reviewed: Yes - General General: Alert and oriented X 3, No acute distress, Well developed/nourished - Cardiac Cardiac: RRR, No murmur - Respiratory Respiratory: No respiratory distress, Clear bilaterally - Abdomen Abdomen: Soft, Non tender PD ED PE EXPANDED - Derm Derm: Papules, Macules, Coalescing, Vesicles SKin visual: 1 - rash 2 - rash Results - Vitals Vitals: Oxygen O2 Source Room air - EKG (time done) No standard instances Rate: Rate (enter#) (64) Rhythm: NSR, LAE Ransom: Normal Intervals: Normal OK QRS: Normal Ischemia: Normal ST segments Computer interpretation: Disagree with computer (no ST depressions; there is artifact in V3, but all other leads allow adequate interpretation to preclude possibility of two (or more) contiguous leads with ST abnormalities)) PD MEDICAL DECISION MAKING - ED course Complexity details: considered differential, d/w patient, d/w family ED course: Presents with left low chest pain and on exam has rash that is classic in appearance and distribution for herpes zoster/shingles. His abdomen is nontender and no acute abnormalities on EKG. He is given valacyclovir in ED and rx for same is provided Departure - Departure Disposition: Home, Self Care Clinical Impression: Herpes zoster Qualifiers: Herpes zoster complications: without complications Qualified Code(s): B02.9 - Zoster without complications Condition: Good Instructions: ED Shingles Prescriptions: valACYclovir [Valtrex] 1,000 mg PO TID #40 tablet Comments: The rash on your back, left flank, and left upper abdomen is diagnostic for shingles. A prescription for an anti-viral medication (valacyclovir) has been electronically submitted to the [facility] pharmacy in [place]. Discharge Date/Time: 06/20/22 04:40
[2022-06-20] MEDS ORDERED: valACYclovir 500 MG TABLET PO STA (04:13)
[2022-06-20 04:32] VITALS: BP 133/85
== END 2022-06-20 04:40 | disposition home or self-care (01) ==
LOC: ED 03:05
DX: B02.9 Zoster without complications (principal); I10 Essential (primary) hypertension
CPT/HCPCS: 93005; 99282; 99284; A9270

== ENCOUNTER 2022-10-06 09:06 | Outpatient (CLI) | payer MEDICARE ==
[2022-10-06 12:38] LABS: CALCIUM 9.3 mg/dL (8.5-10.3); CREATININE 0.9 mg/dL (0.6-1.2); POTASSIUM 3.6 mmol/L (3.5-5.0)
[2022-10-06 13:02] LABS: ESTIMATED AVERAGE GLUCOSE 120 mg/dL (70-100); HEMOGLOBIN A1c% 5.8 % (4.27-6.07)
== END 2022-10-06 09:07 | disposition home or self-care (01) ==
LOC: LAB.N 09:06
PROVIDERS: ATTEND Internal Medicine
DX: R73.01 Impaired fasting glucose (principal)
CPT/HCPCS: 36415; 80048; 83036

== ENCOUNTER 2023-11-10 18:45 | Emergency (ER) | payer MEDICARE ==
[2023-11-10 19:10] LABS: BILIRUBIN,URINE NEGATIVE (NEGATIVE); GLUCOSE, URINE (UA) NEGATIVE (NEGATIVE); KETONES,URINE (UA) NEGATIVE (NEGATIVE); LEUKOCYTE ESTERASE, URINE NEGATIVE (NEGATIVE); NITRITE,URINE NEGATIVE (NEGATIVE); OCCULT BLOOD,URINE NEGATIVE (NEGATIVE); PROTEIN,URINE NEGATIVE (NEGATIVE); UROBILINOGEN,URINE 0.2 (NORMAL) E.U./dL (NORMAL)
[2023-11-10 19:11] LABS: BASOPHILS % (AUTO) 0.8 %; EOSINOPHILS % (AUTO) 0.2 %; HGB - HEMOGLOBIN 14.1 g/dL (14.0-18.0); LYMPHOCYTES # (AUTO) 0.5 10^3/uL (1.5-3.5); MEAN CORPUSCULAR HEMOGLOBIN 31.2 pg (27.0-31.0); MEAN CORPUSCULAR HGB CONC 32.8 g/dL (32.0-36.0); MEAN CORPUSCULAR VOLUME 95.1 fL (80.0-94.0); MEAN PLATELET VOLUME 8.4 fL (7.4-11.4); MONOCYTES # (AUTO) 0.5 10^3/uL (0.0-1.0); NEUTROPHILS # (AUTO) 4.1 10^3/uL (1.5-6.6); NEUTROPHILS % (AUTO) 80.6 %; PLT - PLATELET COUNT 151 10^3/uL (130-450); RED BLOOD COUNT 4.52 10^6/uL (4.70-6.10); RED CELL DISTRIBUTION WIDTH 12.9 % (12.0-15.0); WHITE BLOOD COUNT 5.1 x10^3/uL (4.8-10.8)
[2023-11-10 19:17] LABS: ALBUMIN 4.7 g/dL (3.2-5.5); ALBUMIN/GLOBULIN RATIO 1.7 (1.0-2.2); ALKALINE PHOSPHATASE 56 IU/L (42-121); ALT ALANINE AMINOTRANSFERASE 16 IU/L (10-60); AST ASPARTATE AMINOTRANSFERASE 18 IU/L (10-42); BILIRUBIN,TOTAL 1.1 mg/dL (0.2-1.0); BUN - BLOOD UREA NITROGEN 20 mg/dL (6-20); CALCIUM 9.7 mg/dL (8.5-10.3); CARBON DIOXIDE - CO2 27 mmol/L (21-32); CHLORIDE 102 mmol/L (101-111); CREATININE 0.9 mg/dL (0.6-1.3); GFR - MDRD 81 (>89); GLUCOSE 175 mg/dL (74-104); POTASSIUM 3.9 mmol/L (3.5-4.5); SODIUM 137 mmol/L (135-145); TOTAL PROTEIN 7.4 g/dL (6.4-8.9)
[2023-11-10 19:19] LABS: CLARITY,URINE CLEAR (CLEAR)
[2023-11-10 19:22] LABS: LIPASE < 10 U/L (11-82)
--- NOTE | 2023-11-10 19:36 | ED Physician Documentation ---
PD HPI NVD - Stated complaint Stated Complaint: N/V/D - Chief complaint Chief Complaint: Abd Pain - History obtained from History obtained from: Patient - Additonal information Additional information: 83-year-old gentleman with history of coronary disease presents with his . He went out to dinner last night and ate some prawns and suspects they might have been bad. Around 3 AM he woke up this morning with vomiting and diarrhea. He was getting better throughout the day but then it kind of relapse this evening when he tried to eat some chicken soup. He has no abdominal pain. No fevers. PD PAST MEDICAL HISTORY - Past Medical History Past Medical History: Yes Cardiovascular: Hypertension Respiratory: None Neuro: None Endocrine/Autoimmune: Other GI: GERD, Hiatal hernia : None HEENT: None Psych: Depression, Anxiety Musculoskeletal: None Derm: None - Past Surgical History Past Surgical History: Yes General: Hiatal hernia repair, Other - Present Medications Home Medications: Ambulatory Orders Medication Instructions Recorded Confirmed Aspirin [Aspir 81] 81 mg PO DAILY 06/11/15 01/06/16 Multivitamin [Multi-Vitamin Daily] 1 each PO DAILY 06/11/15 01/06/16 Omeprazole [Prilosec] 20 mg PO DAILY 06/11/15 01/06/16 Labetalol [Trandate] 100 mg PO BID 06/25/18 06/25/18 QUEtiapine [SEROquel] 50 mg PO DAILY PM 06/25/18 06/25/18 hydrOXYzine pamoate [Hydroxyzine 25 mg PO Q8H PRN 06/25/18 06/25/18 Pamoate] lamoTRIgine [Lamotrigine Odt] 25 mg PO BID 06/25/18 06/25/18 LORazepam [Lorazepam] 0.5 mg PO TID PRN #14 tablet 06/26/18 Quetiapine Fumarate [Seroquel] 50 mg PO BID #60 tablet 06/26/18 Nitroglycerin [Nitrostat] 0.3 mg SL BID PRN #60 03/31/21 valACYclovir [Valtrex] 1,000 mg PO TID #40 tablet 06/20/22 Ondansetron Odt [Zofran] 4 mg TL Q6H PRN #10 tablet 11/10/23 - Allergies Allergies/Adverse Reactions: Allergies Allergy/AdvReac Type Severity Reaction Status Date / Time Penicillins Allergy Unknown Verified 11/10/23 18:47 - Social History Does the pt smoke?: No Smoking Status: Never smoker Does the pt drink ETOH?: No Does the pt have substance abuse?: No - Immunizations Immunizations are current?: Yes - POLST Patient has POLST: No PD ED PE NORMAL - Vitals Vital signs reviewed: Yes - General General: Alert and oriented X 3, No acute distress - HEENT HEENT: Other (Dry mucous membranes) - Cardiac Cardiac: RRR, No murmur - Respiratory Respiratory: No respiratory distress, Clear bilaterally - Abdomen Abdomen: Normal bowel sounds, Soft, Non tender - Neuro Neuro: Alert and oriented X 3 Results - Vitals Vitals: Vital Signs - 24 hr 11/10/23 11/10/23 18:47 20:49 Temperature 36.8 C 36.8 C Heart Rate 88 81 Respiratory 16 16 Rate Blood Pressure 149/72 H 126/68 O2 Saturation 97 96 Oxygen O2 Source Room air - Labs Labs: Laboratory Tests 11/10/23 11/10/23 11/10/23 18:51 18:56 18:56 WBC 5.1 RBC 4.52 L Hgb 14.1 Hct 43.0 MCV 95.1 H MCH 31.2 H MCHC 32.8 RDW 12.9 Plt Count 151 MPV 8.4 Neut # (Auto) 4.1 Lymph # (Auto) 0.5 L Harris # (Auto) 0.5 Eos # (Auto) 0.0 Baso # (Auto) 0.0 Absolute Nucleated RBC 0.00 Nucleated RBC % 0.0 Sodium 137 Potassium 3.9 Chloride 102 Carbon Dioxide 27 Anion Gap 8.0 BUN 20 Creatinine 0.9 Estimated GFR (MDRD) 81 L Glucose 175 H Calcium 9.7 Total Bilirubin 1.1 H AST 18 ALT 16 Alkaline Phosphatase 56 Total Protein 7.4 Albumin 4.7 Globulin 2.7 Albumin/Globulin Ratio 1.7 Lipase < 10 L Urine Color YELLOW Urine Clarity CLEAR Urine pH 5.0 Ur Specific [place] >=1.030 H Urine Protein NEGATIVE Urine Glucose (UA) NEGATIVE Urine Ketones NEGATIVE Urine Occult Blood NEGATIVE Urine Nitrite NEGATIVE Urine Bilirubin NEGATIVE Urine Urobilinogen 0.2 (NORMAL) Ur Leukocyte Esterase NEGATIVE Ur Microscopic Review NOT INDICATED Urine Culture Comments NOT INDICATED PD Medical Decision Making - ED course ED course: 83-year-old gentleman with gastroenteritis versus food poisoning. Kind of sounding more like gastroenteritis. CBC was unremarkable. CMP with mild hyperglycemia. Urinalysis with concentration. He was administered IV fluids, Zofran, Imodium. Subsequently was feeling better and passed a p.o. challenge here. Given prepack of Zofran to go with very close return precautions discussing the generally very short and self-limited nature of gastroenteritis. Departure - Departure Disposition: 01 Home, Self Care Clinical Impression: Gastroenteritis Condition: Good Record reviewed to determine appropriate education?: Yes Instructions: ED Gastroenteritis Viral Prescriptions: Ondansetron Odt [Zofran] 4 mg TL Q6H PRN #10 tablet PRN Reason: Nausea / Vomiting Comments: Sip fluids tonight, you can try to eat bland foods tomorrow but I would not do anything more tonight. Return for new or worsening symptoms or if not better in the next 12 hours. You should be better over that timeframe. Forms: PCP List Discharge Date/Time: 11/10/23 21:06
[2023-11-10] MEDS: LOPERAMIDE 2 MG CAPSULE PO STA (19:59)
[2023-11-10] MEDS: SODIUM CHLORIDE 0.9% 1,000 ML IV STA (19:59)
[2023-11-10] MEDS: ONDANSETRON 4 MG/2 ML VIAL IVP STA (19:59)
[2023-11-10] MEDS: ONDANSETRON ODT 4 MG Prepack 2 TL STA (21:01)
[2023-11-10 21:07] VITALS: BP 126/68; O2SAT 96
== END 2023-11-10 21:06 | disposition home or self-care (01) ==
LOC: ED 18:45
DX: A08.4 Viral intestinal infection, unspecified (principal); I10 Essential (primary) hypertension
CPT/HCPCS: 36415; 80053; 81003; 83690; 85025; 96374; 99283; 99284; A9270; 81001; 87086

== ENCOUNTER 2024-03-07 09:08 | Outpatient (CLI) | payer MEDICARE ==
[2024-03-07 12:05] LABS: BASOPHILS # (AUTO) 0.1 10^3/uL (0.0-0.1); BASOPHILS % (AUTO) 1.2 %; EOSINOPHILS # (AUTO) 0.4 10^3/uL (0.0-0.7); EOSINOPHILS % (AUTO) 8.1 %; HGB - HEMOGLOBIN 11.3 g/dL (14.0-18.0); LYMPHOCYTES # (AUTO) 1.4 10^3/uL (1.5-3.5); LYMPHOCYTES % (AUTO) 33.2 %; MEAN CORPUSCULAR HGB CONC 32.3 g/dL (32.0-36.0); MEAN CORPUSCULAR VOLUME 96.2 fL (80.0-94.0); MEAN PLATELET VOLUME 9.2 fL (7.4-11.4); MONOCYTES # (AUTO) 0.5 10^3/uL (0.0-1.0); MONOCYTES % (AUTO) 12.3 %; NEUTROPHILS # (AUTO) 1.9 10^3/uL (1.5-6.6); PLT - PLATELET COUNT 130 10^3/uL (130-450); RED BLOOD COUNT 3.64 10^6/uL (4.70-6.10); RED CELL DISTRIBUTION WIDTH 13.4 % (12.0-15.0); WHITE BLOOD COUNT 4.3 x10^3/uL (4.8-10.8)
[2024-03-07 12:28] LABS: ALBUMIN 4.6 g/dL (3.2-5.5); ALBUMIN/GLOBULIN RATIO 1.8 (1.0-2.2); ALKALINE PHOSPHATASE 62 IU/L (42-121); ALT ALANINE AMINOTRANSFERASE 16 IU/L (10-60); AST ASPARTATE AMINOTRANSFERASE 19 IU/L (10-42); BILIRUBIN,TOTAL 0.6 mg/dL (0.2-1.0); BUN - BLOOD UREA NITROGEN 14 mg/dL (6-20); CALCIUM 9.5 mg/dL (8.5-10.3); CARBON DIOXIDE - CO2 30 mmol/L (21-32); CHLORIDE 105 mmol/L (101-111); CHOL/HDL RATIO 2.8 (<5.0); CHOLESTEROL 93 mg/dL; CREATININE 0.8 mg/dL (0.6-1.3); GFR - MDRD 92 (>89); GLUCOSE 106 mg/dL (74-104); HDL CHOLESTEROL 33 mg/dL; LDL CHOLESTEROL,CALCULATED 39 mg/dL; LDL/HDL RATIO 1.2 (<3.6); SODIUM 139 mmol/L (135-145); TOTAL PROTEIN 7.1 g/dL (6.4-8.9); TRIGLYCERIDES 105 mg/dL; VLDL CHOLESTEROL 21 mg/dL
[2024-03-07 13:34] LABS: ESTIMATED AVERAGE GLUCOSE 126 mg/dL (70-100)
== END 2024-03-07 09:09 | disposition home or self-care (01) ==
LOC: LAB.N 09:08
PROVIDERS: ATTEND Internal Medicine
DX: I10 Essential (primary) hypertension (principal); R73.03 Prediabetes; Z13.220 Encounter for screening for lipoid disorders; Z13.29 Encounter for screening for other suspected endocrine disorder
CPT/HCPCS: 36415; 80053; 80061; 83036; 83721; 84443; 85025

== ENCOUNTER 2024-03-11 15:43 | Outpatient (CLI) | payer MEDICARE ==
[2024-03-11 18:03] LABS: BASOPHILS # (AUTO) 0.1 10^3/uL (0.0-0.1); BASOPHILS % (AUTO) 1.1 %; EOSINOPHILS # (AUTO) 0.3 10^3/uL (0.0-0.7); EOSINOPHILS % (AUTO) 6.4 %; HCT - HEMATOCRIT 34.6 % (42.0-52.0); HGB - HEMOGLOBIN 11.5 g/dL (14.0-18.0); LYMPHOCYTES # (AUTO) 1.5 10^3/uL (1.5-3.5); LYMPHOCYTES % (AUTO) 34.6 %; MEAN CORPUSCULAR HEMOGLOBIN 31.9 pg (27.0-31.0); MEAN CORPUSCULAR HGB CONC 33.2 g/dL (32.0-36.0); MEAN CORPUSCULAR VOLUME 95.8 fL (80.0-94.0); MEAN PLATELET VOLUME 9.2 fL (7.4-11.4); MONOCYTES # (AUTO) 0.6 10^3/uL (0.0-1.0); MONOCYTES % (AUTO) 12.5 %; NEUTROPHILS % (AUTO) 45.2 %; PLT - PLATELET COUNT 129 10^3/uL (130-450); RED BLOOD COUNT 3.61 10^6/uL (4.70-6.10); RED CELL DISTRIBUTION WIDTH 13.6 % (12.0-15.0); WHITE BLOOD COUNT 4.4 x10^3/uL (4.8-10.8)
[2024-03-11 18:36] LABS: FERRITIN 311.5 ng/mL (23.9-336.2)
== END 2024-03-11 15:44 | disposition home or self-care (01) ==
LOC: LAB.N 15:43
PROVIDERS: ATTEND Internal Medicine
DX: D64.9 Anemia, unspecified (principal)
CPT/HCPCS: 36415; 82607; 82728; 83540; 84466; 85025

== ENCOUNTER 2024-03-13 08:00 | Outpatient (CLI) | payer MEDICARE ==
[2024-03-14 13:14] LABS: FECAL OCCULT BLOOD (FIT) NEGATIVE (NEGATIVE)
== END 2024-03-13 23:59 | disposition home or self-care (01) ==
LOC: LAB.N 08:00
PROVIDERS: ATTEND Internal Medicine
DX: D64.9 Anemia, unspecified (principal)
CPT/HCPCS: 82274